=== PATIENT | female | born 1980 | race Two or more races ===

== ENCOUNTER 2019-10-26 15:19 | Inpatient (IN) | payer BC, OTHER ==
[2019-10-26] MEDS ORDERED: Acetaminophen 325 MG Tab PO PRN (17:26)
[2019-10-26] MEDS: Insulin Lispro 100 Units/ML 3 ML Vial SUBCUT SCH ×2 (18:09→22:35)
[2019-10-26] MEDS ORDERED: Magnesium Sulfate/Water 4 GM in Premix Bag 1 BAG IV ONE (18:27)
--- NOTE | 2019-10-26 18:28 | PCM.HP.2 ---
H&P History of Present Illness - General Date of Service: 10/26/19 Admit Problem/Dx: Admission Diagnosis/Problem Admission Diagnosis/Problem Hypoxia - History of Present Illness Initial Comments - Free Text/Narative: 39-year-old female with history of asthma and diabetes who is known positive for COVID-19 presents to the COVID clinic with worsening shortness of breath, cough, and fatigue. Patient initially was diagnosed on October 14 after developing symptoms. She was exposed by a work associate that she commuted with to work. Patient states that over the last several days her cough is worsened, she has had subjective fever and chills with sweats. She complains of a scratchy throat , headache, fatigue, diarrhea 3 times a day, and hoarseness. She states she has had one episode of mild hematemesis. She denies any wheezing. Her is also COVID-19 positive. Patient was a direct admission to the ICU after she was found to have O2 saturations on room air between 91 and 93%. Patient was also tachypneic with respiratory rate in the low 20s. - Related Data Allergies/Adverse Reactions: Allergies Allergy/AdvReac Type Severity Reaction Status Date / Time celecoxib [From Celebrex] Allergy Severe Anaphylactic Verified 10/26/19 16:43 Shock shellfish derived Allergy Intermediate Rash Verified 10/26/19 17:01 chicken derived Allergy Mild Cannot Verified 10/26/19 17:01 Remember grass pollen Allergy Mild Cannot Verified 10/26/19 17:01 Remember tramadol Allergy Mild Cannot Verified 10/26/19 17:01 Remember Home Medications: Home Meds Benzonatate 100 mg PO TID PRN 10/26/19 [History] Budesonide/Formoterol [Symbicort 160-4.5 MCG] 1 puff INH DAILY 10/26/19 [History ] Cholecalciferol (Vitamin D3) [Vitamin D3] 2,000 unit PO DAILY 10/26/19 [History] Dapagliflozin Propanediol [Farxiga] 10 mg PO DAILY 10/26/19 [History] Meclizine HCl 25 mg PO TID PRN 10/26/19 [History] Montelukast Sodium 10 mg PO DAILY 10/26/19 [History] Naproxen Sodium [Flanax] 220 mg PO BID PRN 10/26/19 [History] No122/Iron/Folic Acid [ Multi Tablet] 1 each PO DAILY 10/26/19 [History] Turmeric/Turmeric Root Extract [Turmeric 500 mg Capsule] 250 mg PO DAILY [History] Vitamin B Complex [B Complex] 1 each PO DAILY 10/26/19 [History] atorvaSTATin Calcium [Atorvastatin Calcium] 10 mg PO DAILY 10/26/19 [History] lisinopriL [Lisinopril] 5 mg PO DAILY 10/26/19 [History] metFORMIN HCl [Metformin HCl] 500 mg PO QID 10/26/19 [History] Past Medical History Respiratory History: Reports: None Endocrine/Metabolic History: Reports: Diabetes, Type II - Infectious Disease History Infectious Disease History: Reports: Novel Coronavirus Social & Family History - Tobacco Use Smoking Status *Q: Never Smoker Second Hand Smoke Exposure: No - Caffeine Use Caffeine Use: Reports: None - Recreational Drug Use Recreational Drug Use: No H&P Review of Systems - Review of Systems: Review Of Systems: Comprehensive ROS is negative, except as noted in HPI. Exam - Exam Exam: See Below - Vital Signs Vital Signs: Last Vital Signs Temp 96.9 F 10/26/19 17:54 Pulse Resp 18 10/26/19 17:54 BP 118/77 10/26/19 17:54 Pulse Ox 95 10/26/19 17:54 Weight: 242 lb 3.2 oz - Exam Quality Assessment: Supplemental Oxygen General: Alert, Oriented, 4 HEENT: Conjunctiva Clear, Hearing Intact, Mucosa Moist & [place] Neck: Supple, Trachea Midline, 2 Lungs: Decreased Breath Sounds. No: Normal Respiratory Effort (Mildly increased respiratory effort with respiratory rate between 18 and 24. No use of accessory muscles), Wheezing Cardiovascular: Regular Rate, Regular Rhythm GI/Abdominal Exam: Normal Bowel Sounds, Soft, Non-Tender, No Organomegaly, No Distention, No Abnormal Bruit, No Mass, Pelvis Stable, Other (Obese) Extremities: Normal Inspection, Normal Range of Motion, Non-Tender, No Pedal Edema, Normal Capillary Refill Peripheral Pulses: 2+: Posterior Tibial (L), Posterior Tibial (R), Dorsalis Pedis (L), Dorsalis Pedis (R) Skin: Warm, Dry, Intact Neurological: Cranial Nerves Intact Neuro Extensive - Mental Status: Alert, Oriented x3, Normal Mood/Affect, Normal Cognition, Memory Intact Psychiatric: Alert, Normal Affect, Normal Mood, Anxious (Mildly) - Patient Data Lab Results Last 24 hrs: Laboratory Results - last 24 hr 10/26/19 10/26/19 10/26/19 Range/Units 15:25 15:25 15:25 WBC 6.85 (3.98-10.04) K/mm3 RBC 5.84 H (3.98-5.22) M/mm3 Hgb 14.9 (11.2-15.7) gm/dl Hct 45.4 H (34.1-44.9) % MCV 77.7 L (79.4-94.8) fl MCH 25.5 L (25.6-32.2) pg MCHC 32.8 (32.2-35.5) g/dl RDW Std Deviation 39.3 (36.4-46.3) fL Plt Count 326 (182-369) K/mm3 MPV 9.6 (9.4-12.3) fl Neut % (Auto) 61.3 (34.0-71.1) % Lymph % (Auto) 27.4 (19.3-51.7) % Citrus % (Auto) 6.7 (4.7-12.5) % Eos % (Auto) 3.9 (0.7-5.8) Baso % (Auto) 0.3 (0.1-1.2) % Neut # (Auto) 4.19 (1.56-6.13) K/mm3 Lymph # (Auto) 1.88 (1.18-3.74) K/mm3 Citrus # (Auto) 0.46 H (0.24-0.36) K/mm3 Eos # (Auto) 0.27 (0.04-0.36) K/mm3 Baso # (Auto) 0.02 (0.01-0.08) K/mm3 Manual Slide Review Abnormal smear PT 9.8 (9.7-12.0) SECONDS INR 0.93 APTT 25 (22-31) SECONDS Puncture Site ABG pH (7.35-7.45) ABG pCO2 (35.0-45.0) mmHg ABG pO2 (80.0-100.0) mmHg ABG HCO3 (22.0-26.0) meq/L ABG O2 Saturation (96.0-97.0) % ABG Base Excess (-2-2.0) Amos Test A-a Gradient mmHg O2 Delivery Device Oxygen Flow Rate FiO2 (21.00-100.00) % Sodium 139 (136-145) mEq/L Potassium 3.4 L (3.5-5.1) mEq/L Chloride 102 (98-107) mEq/L Carbon Dioxide 29 (21-32) mEq/L Anion Gap 11.4 (5-15) BUN 9 (7-18) mg/dL Creatinine 0.7 (0.55-1.02) mg/dL Est Cr Clr Drug Dosing 86.18 mL/min Estimated GFR (MDRD) > 60 (>60) mL/min BUN/Creatinine Ratio 12.9 L (14-18) Glucose 144 H (74-106) mg/dL POC Glucose (70-105) mg/dL Calcium 8.7 (8.5-10.1) mg/dL Magnesium 1.6 L (1.8-2.4) mg/dl Ferritin (8-252) ng/ml Total Bilirubin 0.4 (0.2-1.0) mg/dL AST 17 (15-37) U/L ALT 24 (14-59) U/L Alkaline Phosphatase 81 (46-116) U/L Lactate Dehydrogenase 316 H (81-234) U/L Creatine Kinase 58 (26-192) U/L Troponin I < 0.017 (0.00-0.056) ng/mL C-Reactive Protein 3.6 H* (<1.0) mg/dL NT-Pro-B Natriuret Pep (0-125) pg/mL Total Protein 7.8 (6.4-8.2) g/dl Albumin 2.9 L (3.4-5.0) g/dl Globulin 4.9 gm/dL Albumin/Globulin Ratio 0.6 L (1-2) 10/26/19 10/26/19 10/26/19 Range/Units 15:25 15:25 17:45 WBC (3.98-10.04) K/mm3 RBC (3.98-5.22) M/mm3 Hgb (11.2-15.7) gm/dl Hct (34.1-44.9) % MCV (79.4-94.8) fl MCH (25.6-32.2) pg MCHC (32.2-35.5) g/dl RDW Std Deviation (36.4-46.3) fL Plt Count (182-369) K/mm3 MPV (9.4-12.3) fl Neut % (Auto) (34.0-71.1) % Lymph % (Auto) (19.3-51.7) % Citrus % (Auto) (4.7-12.5) % Eos % (Auto) (0.7-5.8) Baso % (Auto) (0.1-1.2) % Neut # (Auto) (1.56-6.13) K/mm3 Lymph # (Auto) (1.18-3.74) K/mm3 Citrus # (Auto) (0.24-0.36) K/mm3 Eos # (Auto) (0.04-0.36) K/mm3 Baso # (Auto) (0.01-0.08) K/mm3 Manual Slide Review PT (9.7-12.0) SECONDS INR APTT (22-31) SECONDS Puncture Site ABG pH (7.35-7.45) ABG pCO2 (35.0-45.0) mmHg ABG pO2 (80.0-100.0) mmHg ABG HCO3 (22.0-26.0) meq/L ABG O2 Saturation (96.0-97.0) % ABG Base Excess (-2-2.0) Amos Test A-a Gradient mmHg O2 Delivery Device Oxygen Flow Rate FiO2 (21.00-100.00) % Sodium (136-145) mEq/L Potassium (3.5-5.1) mEq/L Chloride (98-107) mEq/L Carbon Dioxide (21-32) mEq/L Anion Gap (5-15) BUN (7-18) mg/dL Creatinine (0.55-1.02) mg/dL Est Cr Clr Drug Dosing mL/min Estimated GFR (MDRD) (>60) mL/min BUN/Creatinine Ratio (14-18) Glucose (74-106) mg/dL POC Glucose 114 H (70-105) mg/dL Calcium (8.5-10.1) mg/dL Magnesium (1.8-2.4) mg/dl Ferritin 314 H (8-252) ng/ml Total Bilirubin (0.2-1.0) mg/dL AST (15-37) U/L ALT (14-59) U/L Alkaline Phosphatase (46-116) U/L Lactate Dehydrogenase (81-234) U/L Creatine Kinase (26-192) U/L Troponin I (0.00-0.056) ng/mL C-Reactive Protein (<1.0) mg/dL NT-Pro-B Natriuret Pep 95 (0-125) pg/mL Total Protein (6.4-8.2) g/dl Albumin (3.4-5.0) g/dl Globulin gm/dL Albumin/Globulin Ratio (1-2) 10/26/19 Range/Units 18:02 WBC (3.98-10.04) K/mm3 RBC (3.98-5.22) M/mm3 Hgb (11.2-15.7) gm/dl Hct (34.1-44.9) % MCV (79.4-94.8) fl MCH (25.6-32.2) pg MCHC (32.2-35.5) g/dl RDW Std Deviation (36.4-46.3) fL Plt Count (182-369) K/mm3 MPV (9.4-12.3) fl Neut % (Auto) (34.0-71.1) % Lymph % (Auto) (19.3-51.7) % Citrus % (Auto) (4.7-12.5) % Eos % (Auto) (0.7-5.8) Baso % (Auto) (0.1-1.2) % Neut # (Auto) (1.56-6.13) K/mm3 Lymph # (Auto) (1.18-3.74) K/mm3 Citrus # (Auto) (0.24-0.36) K/mm3 Eos # (Auto) (0.04-0.36) K/mm3 Baso # (Auto) (0.01-0.08) K/mm3 Manual Slide Review PT (9.7-12.0) SECONDS INR APTT (22-31) SECONDS Puncture Site Lt radial ABG pH 7.37 (7.35-7.45) ABG pCO2 43.2 (35.0-45.0) mmHg ABG pO2 79.0 L (80.0-100.0) mmHg ABG HCO3 24.6 (22.0-26.0) meq/L ABG O2 Saturation 94.9 L (96.0-97.0) % ABG Base Excess -0.3 (-2-2.0) Amos Test Positive A-a Gradient 38 mmHg O2 Delivery Device Nasal cannula Oxygen Flow Rate 1.0 FiO2 24.00 (21.00-100.00) % Sodium (136-145) mEq/L Potassium (3.5-5.1) mEq/L Chloride (98-107) mEq/L Carbon Dioxide (21-32) mEq/L Anion Gap (5-15) BUN (7-18) mg/dL Creatinine (0.55-1.02) mg/dL Est Cr Clr Drug Dosing mL/min Estimated GFR (MDRD) (>60) mL/min BUN/Creatinine Ratio (14-18) Glucose (74-106) mg/dL POC Glucose (70-105) mg/dL Calcium (8.5-10.1) mg/dL Magnesium (1.8-2.4) mg/dl Ferritin (8-252) ng/ml Total Bilirubin (0.2-1.0) mg/dL AST (15-37) U/L ALT (14-59) U/L Alkaline Phosphatase (46-116) U/L Lactate Dehydrogenase (81-234) U/L Creatine Kinase (26-192) U/L Troponin I (0.00-0.056) ng/mL C-Reactive Protein (<1.0) mg/dL NT-Pro-B Natriuret Pep (0-125) pg/mL Total Protein (6.4-8.2) g/dl Albumin (3.4-5.0) g/dl Globulin gm/dL Albumin/Globulin Ratio (1-2) Result Diagrams: 10/26/19 15:25 10/26/19 15:25 EKG INTERPRETATION EKG Date: 10/26/19 Rhythm: NSR Rate (Beats/Min): 74 [place]: Normal P-Wave: Present QRS: Normal ST-T: Normal QT: Normal Sepsis Event Note - Evaluation Sepsis Screening Result: No Definite Risk - Focused Exam Vital Signs: Vital Signs Temp Resp BP Pulse Ox Pulse Ox 10/26/19 17:54 96.9 F 18 118/77 95 10/26/19 17:26 94 L Date Exam was Performed: 10/26/19 Time Exam was Performed: 18:52 Problem List Initiated/Reviewed/Updated: Yes Orders Last 24hrs: Active Orders 24 hr Category Date Time Status Patient Status [ADT] Routine ADT 10/26/19 17:26 Active Blood Glucose Check, Bedside [RC] QIDACANDBED Care 10/26/19 16:53 Active EKG 12 Lead [EKG Documentation Completion] [RC] STAT Care 10/26/19 17:31 Active Intake and Output Strict [RC] ASDIRECTED Care 10/26/19 18:20 Active Oxygen Therapy [RC] PRN Care 10/26/19 17:26 Active Up ad Jolly [RC] ASDIRECTED Care 10/26/19 17:26 Active VTE/DVT Education [RC] BID Care 10/26/19 17:26 Active Vital Signs [RC] Q4HR Care 10/26/19 17:26 Active [place] [employer] Diet [DIET] Diet 10/26/19 Dinner Active CXR [Chest 1V Frontal] [CR] Routine Exams 10/27/19 05:11 Ordered D Dimer [D-DIMER QUANTITATIVE] [COAG] Routine Lab 10/26/19 15:25 Received PROCALCITONIN [REF] Stat Lab 10/26/19 15:25 Received SEDIMENTATION RATE AUTO [HEME] Stat Lab 10/26/19 15:25 Received Acetaminophen [Tylenol] Med 10/26/19 17:26 Active 650 mg PO Q4H PRN Enoxaparin [Lovenox] Med 10/26/19 21:00 Pending 40 mg SUBCUT Q12H Insulin Lispro [HumaLOG] Med 10/26/19 17:00 Active See Protocol SUBCUT QIDACANDBED Magnesium Sulfate/Water [Magnesium Sulfate in Water Med 10/26/19 18:27 Ordered Premix] 4 gm Premix Bag 1 bag IV ONETIME Potassium Chloride [Klor-Con M20] Med 10/26/19 18:14 Once 40 meq PO ONETIME ONE Isolation [COMM] Routine Oth 10/26/19 16:35 Ordered Resuscitation Status Routine Resus Stat 10/26/19 16:53 Ordered Medication Orders Acetaminophen (Tylenol) 650 mg PO Q4H PRN PRN Reason: Pain (Mild 1-3)/fever Enoxaparin Sodium (Lovenox) 40 mg SUBCUT Q12H [facility] Magnesium Sulfate 4 gm/ Premix 50 mls @ 12.5 mls/hr IV ONETIME ONE Stop: 10/26/19 22:26 Insulin Human Lispro (Humalog) 0 unit SUBCUT QIDACANDBED [facility]; Protocol Last Admin: 10/26/19 18:09 Dose: Not Given Potassium Chloride (Klor-Con M20) 40 meq PO ONETIME ONE Stop: 10/26/19 18:15 Assessment/Plan Comment:: Severe COVID-19 Hypoxemia Asthma * Patient is hypoxemic with oxygen saturations less than 94%. * Increased respiratory rate, but less than 30 * Had a positive COVID-19 PCR on October 14. Exposure secondary to work associate while commuting to work. * Symptoms worsening over the last week. * History of asthma on Symbicort and montelukast * Pertinent normal labs: WBC 6.5 with normal absolute lymphocytes, normal INR and APTT, creatinine kinase 58, troponin I <0.017, * Pertinent positive labs: increased ferritin 314, increased LDH 316, mildly increased d-dimer 0.59, CRP 1.6, Plan * Admit to ICU for close monitoring * FiO2 via nasal cannula to keep oxygen saturation above 90% * Daily CBC, CMP, magnesium, CRP, ferritin, LDH, creatinine kinase, d-dimer, * Every other day troponin, PT and PTT * Continue Symbicort and montelukast * Albuterol 2 puffs every 2 hours as needed * Avoid systemic steroids if possible * Pharmacy is working to obtain emergency use of remdesivir from [facility] [facility] * Unknown hemoglobin A1c * Home meds include Farxiga and metformin Plan * Fingerstick blood sugars 4 times daily * Cover with sliding scale initially and consider long-acting insulin if needed * Continue lisinopril 5 mg daily and atorvastatin equivalent * Get hemoglobin A1c Morbid obesity * BMI 44.3 * This increases her risk for complications secondary to COVID and thromboembolic disease VTE prophylaxis will be with Lovenox 40 mg twice daily because of the increased risk of thromboembolic disease secondary to both COVID-19 and her obesity. CODE STATUS: Full code Droplet and contact isolation Disposition: Admit to ICU for close monitoring. - Mortality Measure Prognosis:: Good
[2019-10-26] MEDS ORDERED: Benzonatate 100 MG Cap PO PRN (18:34)
[2019-10-26] MEDS ORDERED: Albuterol 0.5% 2.5 MG/0.5 ML Neb Soln NEB PRN (18:53)
[2019-10-26] MEDS: Enoxaparin 40 MG/0.4 ML Syringe SUBCUT SCH (20:32)
[2019-10-26] MEDS: Potassium Chloride 20 MEQ Tab.ER PO ONE ×2 (20:33→22:36)
[2019-10-26] MEDS ORDERED: Formoterol/Mometasone 200-5 MCG 8.8 GM Inhaler IH SCH (21:00)
[2019-10-27] MEDS: Insulin Lispro 100 Units/ML 3 ML Vial SUBCUT SCH ×3 (06:49→16:25)
[2019-10-27 07:20] LABS: HEMOGLOBIN A1C 8.1 % (4.50-6.20)
[2019-10-27] MEDS: Enoxaparin 40 MG/0.4 ML Syringe SUBCUT SCH (08:03)
--- NOTE | 2019-10-27 08:31 | CR ---
Chest: Portable view of the chest was obtained. Comparison: No prior chest imaging is available. Findings: Heart size and mediastinum are normal. Patchy areas of increased density are noted throughout both sides of the chest presumably representing pneumonia. No discrete pleural effusions noted on the study. Bony structures are grossly intact. Impression: 1. Diffuse increased density on both sides of the chest presumably representing pneumonia. Etiology can be viral as well as bacterial. Diagnostic code #3 This report was dictated in MDT
[2019-10-27] MEDS ORDERED: Lisinopril 5 MG Tab PO SCH (09:00)
[2019-10-27] MEDS ORDERED: Montelukast 10 MG Tab PO SCH (09:00)
[2019-10-27] MEDS ORDERED: Formoterol/Mometasone 200-5 MCG 8.8 GM Inhaler IH SCH (09:00)
--- NOTE | 2019-10-27 09:47 | PCM.PN ---
- General Info Date of Service: 10/27/19 Admission Dx/Problem (Free Text): Admission Diagnosis/Problem Admission Diagnosis/Problem Hypoxia Subjective Update: Patient states that she is feeling much better. She is having less shortness of breath but still has some mucus production when she coughs. She is tolerating her diet and slept well. Functional Status: Reports: Pain Controlled - Review of Systems General: Reports: No Symptoms HEENT: Reports: No Symptoms Pulmonary: Reports: Shortness of Breath, Cough Cardiovascular: Reports: No Symptoms Gastrointestinal: Reports: No Symptoms Musculoskeletal: Reports: No Symptoms Skin: Reports: No Symptoms Neurological: Reports: No Symptoms Psychiatric: Reports: No Symptoms - Patient Data Vitals - Most Recent: Last Vital Signs Temp 97.1 F 10/27/19 08:00 Pulse Resp 19 10/27/19 08:00 BP 112/66 10/27/19 08:03 Pulse Ox 96 10/27/19 08:58 Weight - Most Recent: 243 lb I&O - Last 24 Hours: Intake & Output 10/26/19 10/27/19 10/27/19 22:59 06:59 14:59 Intake Total 1050 Output Total 400 770 Balance -400 280 Lab Results Last 24 Hours: Laboratory Results - last 24 hr 10/26/19 10/26/19 10/26/19 Range/Units 15:25 15:25 15:25 WBC 6.85 (3.98-10.04) K/mm3 RBC 5.84 H (3.98-5.22) M/mm3 Hgb 14.9 (11.2-15.7) gm/dl Hct 45.4 H (34.1-44.9) % MCV 77.7 L (79.4-94.8) fl MCH 25.5 L (25.6-32.2) pg MCHC 32.8 (32.2-35.5) g/dl RDW Std Deviation 39.3 (36.4-46.3) fL Plt Count 326 (182-369) K/mm3 MPV 9.6 (9.4-12.3) fl Neut % (Auto) 61.3 (34.0-71.1) % Lymph % (Auto) 27.4 (19.3-51.7) % Vance % (Auto) 6.7 (4.7-12.5) % Eos % (Auto) 3.9 (0.7-5.8) Baso % (Auto) 0.3 (0.1-1.2) % Neut # (Auto) 4.19 (1.56-6.13) K/mm3 Lymph # (Auto) 1.88 (1.18-3.74) K/mm3 Vance # (Auto) 0.46 H (0.24-0.36) K/mm3 Eos # (Auto) 0.27 (0.04-0.36) K/mm3 Baso # (Auto) 0.02 (0.01-0.08) K/mm3 Manual Slide Review Abnormal smear ESR 58 H (0-20) mm/hr PT 9.8 (9.7-12.0) SECONDS INR 0.93 APTT 25 (22-31) SECONDS D-Dimer, Quantitative (0.19-0.50) mg/L Puncture Site ABG pH (7.35-7.45) ABG pCO2 (35.0-45.0) mmHg ABG pO2 (80.0-100.0) mmHg ABG HCO3 (22.0-26.0) meq/L ABG O2 Saturation (96.0-97.0) % ABG Base Excess (-2-2.0) Amos Test A-a Gradient mmHg O2 Delivery Device Oxygen Flow Rate FiO2 (21.00-100.00) % Sodium (136-145) mEq/L Potassium (3.5-5.1) mEq/L Chloride (98-107) mEq/L Carbon Dioxide (21-32) mEq/L Anion Gap (5-15) BUN (7-18) mg/dL Creatinine (0.55-1.02) mg/dL Est Cr Clr Drug Dosing mL/min Estimated GFR (MDRD) (>60) mL/min BUN/Creatinine Ratio (14-18) Glucose (74-106) mg/dL POC Glucose (70-105) mg/dL Hemoglobin A1c (4.50-6.20) % Calcium (8.5-10.1) mg/dL Magnesium (1.8-2.4) mg/dl Ferritin (8-252) ng/ml Total Bilirubin (0.2-1.0) mg/dL AST (15-37) U/L ALT (14-59) U/L Alkaline Phosphatase (46-116) U/L Lactate Dehydrogenase (81-234) U/L Creatine Kinase (26-192) U/L Troponin I (0.00-0.056) ng/mL C-Reactive Protein (<1.0) mg/dL NT-Pro-B Natriuret Pep (0-125) pg/mL Total Protein (6.4-8.2) g/dl Albumin (3.4-5.0) g/dl Globulin gm/dL Albumin/Globulin Ratio (1-2) 10/26/19 10/26/19 10/26/19 Range/Units 15:25 15:25 15:25 WBC (3.98-10.04) K/mm3 RBC (3.98-5.22) M/mm3 Hgb (11.2-15.7) gm/dl Hct (34.1-44.9) % MCV (79.4-94.8) fl MCH (25.6-32.2) pg MCHC (32.2-35.5) g/dl RDW Std Deviation (36.4-46.3) fL Plt Count (182-369) K/mm3 MPV (9.4-12.3) fl Neut % (Auto) (34.0-71.1) % Lymph % (Auto) (19.3-51.7) % Vance % (Auto) (4.7-12.5) % Eos % (Auto) (0.7-5.8) Baso % (Auto) (0.1-1.2) % Neut # (Auto) (1.56-6.13) K/mm3 Lymph # (Auto) (1.18-3.74) K/mm3 Vance # (Auto) (0.24-0.36) K/mm3 Eos # (Auto) (0.04-0.36) K/mm3 Baso # (Auto) (0.01-0.08) K/mm3 Manual Slide Review ESR (0-20) mm/hr PT (9.7-12.0) SECONDS INR APTT (22-31) SECONDS D-Dimer, Quantitative (0.19-0.50) mg/L Puncture Site ABG pH (7.35-7.45) ABG pCO2 (35.0-45.0) mmHg ABG pO2 (80.0-100.0) mmHg ABG HCO3 (22.0-26.0) meq/L ABG O2 Saturation (96.0-97.0) % ABG Base Excess (-2-2.0) Amos Test A-a Gradient mmHg O2 Delivery Device Oxygen Flow Rate FiO2 (21.00-100.00) % Sodium 139 (136-145) mEq/L Potassium 3.4 L (3.5-5.1) mEq/L Chloride 102 (98-107) mEq/L Carbon Dioxide 29 (21-32) mEq/L Anion Gap 11.4 (5-15) BUN 9 (7-18) mg/dL Creatinine 0.7 (0.55-1.02) mg/dL Est Cr Clr Drug Dosing 86.18 mL/min Estimated GFR (MDRD) > 60 (>60) mL/min BUN/Creatinine Ratio 12.9 L (14-18) Glucose 144 H (74-106) mg/dL POC Glucose (70-105) mg/dL Hemoglobin A1c (4.50-6.20) % Calcium 8.7 (8.5-10.1) mg/dL Magnesium 1.6 L (1.8-2.4) mg/dl Ferritin 314 H (8-252) ng/ml Total Bilirubin 0.4 (0.2-1.0) mg/dL AST 17 (15-37) U/L ALT 24 (14-59) U/L Alkaline Phosphatase 81 (46-116) U/L Lactate Dehydrogenase 316 H (81-234) U/L Creatine Kinase 58 (26-192) U/L Troponin I < 0.017 (0.00-0.056) ng/mL C-Reactive Protein 3.6 H* (<1.0) mg/dL NT-Pro-B Natriuret Pep 95 (0-125) pg/mL Total Protein 7.8 (6.4-8.2) g/dl Albumin 2.9 L (3.4-5.0) g/dl Globulin 4.9 gm/dL Albumin/Globulin Ratio 0.6 L (1-2) 10/26/19 10/26/19 10/26/19 Range/Units 15:25 17:45 18:02 WBC (3.98-10.04) K/mm3 RBC (3.98-5.22) M/mm3 Hgb (11.2-15.7) gm/dl Hct (34.1-44.9) % MCV (79.4-94.8) fl MCH (25.6-32.2) pg MCHC (32.2-35.5) g/dl RDW Std Deviation (36.4-46.3) fL Plt Count (182-369) K/mm3 MPV (9.4-12.3) fl Neut % (Auto) (34.0-71.1) % Lymph % (Auto) (19.3-51.7) % Vance % (Auto) (4.7-12.5) % Eos % (Auto) (0.7-5.8) Baso % (Auto) (0.1-1.2) % Neut # (Auto) (1.56-6.13) K/mm3 Lymph # (Auto) (1.18-3.74) K/mm3 Vance # (Auto) (0.24-0.36) K/mm3 Eos # (Auto) (0.04-0.36) K/mm3 Baso # (Auto) (0.01-0.08) K/mm3 Manual Slide Review ESR (0-20) mm/hr PT (9.7-12.0) SECONDS INR APTT (22-31) SECONDS D-Dimer, Quantitative 0.59 H (0.19-0.50) mg/L Puncture Site Lt radial ABG pH 7.37 (7.35-7.45) ABG pCO2 43.2 (35.0-45.0) mmHg ABG pO2 79.0 L (80.0-100.0) mmHg ABG HCO3 24.6 (22.0-26.0) meq/L ABG O2 Saturation 94.9 L (96.0-97.0) % ABG Base Excess -0.3 (-2-2.0) Amos Test Positive A-a Gradient 38 mmHg O2 Delivery Device Nasal cannula Oxygen Flow Rate 1.0 FiO2 24.00 (21.00-100.00) % Sodium (136-145) mEq/L Potassium (3.5-5.1) mEq/L Chloride (98-107) mEq/L Carbon Dioxide (21-32) mEq/L Anion Gap (5-15) BUN (7-18) mg/dL Creatinine (0.55-1.02) mg/dL Est Cr Clr Drug Dosing mL/min Estimated GFR (MDRD) (>60) mL/min BUN/Creatinine Ratio (14-18) Glucose (74-106) mg/dL POC Glucose 114 H (70-105) mg/dL Hemoglobin A1c (4.50-6.20) % Calcium (8.5-10.1) mg/dL Magnesium (1.8-2.4) mg/dl Ferritin (8-252) ng/ml Total Bilirubin (0.2-1.0) mg/dL AST (15-37) U/L ALT (14-59) U/L Alkaline Phosphatase (46-116) U/L Lactate Dehydrogenase (81-234) U/L Creatine Kinase (26-192) U/L Troponin I (0.00-0.056) ng/mL C-Reactive Protein (<1.0) mg/dL NT-Pro-B Natriuret Pep (0-125) pg/mL Total Protein (6.4-8.2) g/dl Albumin (3.4-5.0) g/dl Globulin gm/dL Albumin/Globulin Ratio (1-2) 10/26/19 10/27/19 10/27/19 Range/Units 20:26 05:36 05:40 WBC 6.06 (3.98-10.04) K/mm3 RBC 5.51 H (3.98-5.22) M/mm3 Hgb 14.0 (11.2-15.7) gm/dl Hct 43.5 (34.1-44.9) % MCV 78.9 L (79.4-94.8) fl MCH 25.4 L (25.6-32.2) pg MCHC 32.2 (32.2-35.5) g/dl RDW Std Deviation 40.0 (36.4-46.3) fL Plt Count 303 (182-369) K/mm3 MPV 9.2 L (9.4-12.3) fl Neut % (Auto) 51.4 (34.0-71.1) % Lymph % (Auto) 35.0 (19.3-51.7) % Vance % (Auto) 8.3 (4.7-12.5) % Eos % (Auto) 4.3 (0.7-5.8) Baso % (Auto) 0.7 (0.1-1.2) % Neut # (Auto) 3.12 (1.56-6.13) K/mm3 Lymph # (Auto) 2.12 (1.18-3.74) K/mm3 Vance # (Auto) 0.50 H (0.24-0.36) K/mm3 Eos # (Auto) 0.26 (0.04-0.36) K/mm3 Baso # (Auto) 0.04 (0.01-0.08) K/mm3 Manual Slide Review Normal smear ESR (0-20) mm/hr PT (9.7-12.0) SECONDS INR APTT (22-31) SECONDS D-Dimer, Quantitative (0.19-0.50) mg/L Puncture Site ABG pH (7.35-7.45) ABG pCO2 (35.0-45.0) mmHg ABG pO2 (80.0-100.0) mmHg ABG HCO3 (22.0-26.0) meq/L ABG O2 Saturation (96.0-97.0) % ABG Base Excess (-2-2.0) Amos Test A-a Gradient mmHg O2 Delivery Device Oxygen Flow Rate FiO2 (21.00-100.00) % Sodium (136-145) mEq/L Potassium (3.5-5.1) mEq/L Chloride (98-107) mEq/L Carbon Dioxide (21-32) mEq/L Anion Gap (5-15) BUN (7-18) mg/dL Creatinine (0.55-1.02) mg/dL Est Cr Clr Drug Dosing mL/min Estimated GFR (MDRD) (>60) mL/min BUN/Creatinine Ratio (14-18) Glucose (74-106) mg/dL POC Glucose 129 H 149 H (70-105) mg/dL Hemoglobin A1c (4.50-6.20) % Calcium (8.5-10.1) mg/dL Magnesium (1.8-2.4) mg/dl Ferritin (8-252) ng/ml Total Bilirubin (0.2-1.0) mg/dL AST (15-37) U/L ALT (14-59) U/L Alkaline Phosphatase (46-116) U/L Lactate Dehydrogenase (81-234) U/L Creatine Kinase (26-192) U/L Troponin I (0.00-0.056) ng/mL C-Reactive Protein (<1.0) mg/dL NT-Pro-B Natriuret Pep (0-125) pg/mL Total Protein (6.4-8.2) g/dl Albumin (3.4-5.0) g/dl Globulin gm/dL Albumin/Globulin Ratio (1-2) 10/27/19 10/27/19 10/27/19 Range/Units 05:40 05:40 05:40 WBC (3.98-10.04) K/mm3 RBC (3.98-5.22) M/mm3 Hgb (11.2-15.7) gm/dl Hct (34.1-44.9) % MCV (79.4-94.8) fl MCH (25.6-32.2) pg MCHC (32.2-35.5) g/dl RDW Std Deviation (36.4-46.3) fL Plt Count (182-369) K/mm3 MPV (9.4-12.3) fl Neut % (Auto) (34.0-71.1) % Lymph % (Auto) (19.3-51.7) % Vance % (Auto) (4.7-12.5) % Eos % (Auto) (0.7-5.8) Baso % (Auto) (0.1-1.2) % Neut # (Auto) (1.56-6.13) K/mm3 Lymph # (Auto) (1.18-3.74) K/mm3 Vance # (Auto) (0.24-0.36) K/mm3 Eos # (Auto) (0.04-0.36) K/mm3 Baso # (Auto) (0.01-0.08) K/mm3 Manual Slide Review ESR (0-20) mm/hr PT (9.7-12.0) SECONDS INR APTT (22-31) SECONDS D-Dimer, Quantitative 0.57 H (0.19-0.50) mg/L Puncture Site ABG pH (7.35-7.45) ABG pCO2 (35.0-45.0) mmHg ABG pO2 (80.0-100.0) mmHg ABG HCO3 (22.0-26.0) meq/L ABG O2 Saturation (96.0-97.0) % ABG Base Excess (-2-2.0) Amos Test A-a Gradient mmHg O2 Delivery Device Oxygen Flow Rate FiO2 (21.00-100.00) % Sodium 140 (136-145) mEq/L Potassium 3.7 (3.5-5.1) mEq/L Chloride 103 (98-107) mEq/L Carbon Dioxide 29 (21-32) mEq/L Anion Gap 11.7 (5-15) BUN 10 (7-18) mg/dL Creatinine 0.5 L (0.55-1.02) mg/dL Est Cr Clr Drug Dosing 120.66 mL/min Estimated GFR (MDRD) > 60 (>60) mL/min BUN/Creatinine Ratio 20.0 H (14-18) Glucose 180 H (74-106) mg/dL POC Glucose (70-105) mg/dL Hemoglobin A1c (4.50-6.20) % Calcium 8.0 L (8.5-10.1) mg/dL Magnesium 2.3 (1.8-2.4) mg/dl Ferritin 265 H (8-252) ng/ml Total Bilirubin 0.5 (0.2-1.0) mg/dL AST 16 (15-37) U/L ALT 21 (14-59) U/L Alkaline Phosphatase 64 (46-116) U/L Lactate Dehydrogenase 224 (81-234) U/L Creatine Kinase 42 (26-192) U/L Troponin I (0.00-0.056) ng/mL C-Reactive Protein 3.0 H* (<1.0) mg/dL NT-Pro-B Natriuret Pep (0-125) pg/mL Total Protein 7.3 (6.4-8.2) g/dl Albumin 2.8 L (3.4-5.0) g/dl Globulin 4.5 gm/dL Albumin/Globulin Ratio 0.6 L (1-2) 05/13/20 Range/Units 05:40 WBC (3.98-10.04) K/mm3 RBC (3.98-5.22) M/mm3 Hgb (11.2-15.7) gm/dl Hct (34.1-44.9) % MCV (79.4-94.8) fl MCH (25.6-32.2) pg MCHC (32.2-35.5) g/dl RDW Std Deviation (36.4-46.3) fL Plt Count (182-369) K/mm3 MPV (9.4-12.3) fl Neut % (Auto) (34.0-71.1) % Lymph % (Auto) (19.3-51.7) % Vance % (Auto) (4.7-12.5) % Eos % (Auto) (0.7-5.8) Baso % (Auto) (0.1-1.2) % Neut # (Auto) (1.56-6.13) K/mm3 Lymph # (Auto) (1.18-3.74) K/mm3 Vance # (Auto) (0.24-0.36) K/mm3 Eos # (Auto) (0.04-0.36) K/mm3 Baso # (Auto) (0.01-0.08) K/mm3 Manual Slide Review ESR (0-20) mm/hr PT (9.7-12.0) SECONDS INR APTT (22-31) SECONDS D-Dimer, Quantitative (0.19-0.50) mg/L Puncture Site ABG pH (7.35-7.45) ABG pCO2 (35.0-45.0) mmHg ABG pO2 (80.0-100.0) mmHg ABG HCO3 (22.0-26.0) meq/L ABG O2 Saturation (96.0-97.0) % ABG Base Excess (-2-2.0) Amos Test A-a Gradient mmHg O2 Delivery Device Oxygen Flow Rate FiO2 (21.00-100.00) % Sodium (136-145) mEq/L Potassium (3.5-5.1) mEq/L Chloride (98-107) mEq/L Carbon Dioxide (21-32) mEq/L Anion Gap (5-15) BUN (7-18) mg/dL Creatinine (0.55-1.02) mg/dL Est Cr Clr Drug Dosing mL/min Estimated GFR (MDRD) (>60) mL/min BUN/Creatinine Ratio (14-18) Glucose (74-106) mg/dL POC Glucose (70-105) mg/dL Hemoglobin A1c 8.10 H (4.50-6.20) % Calcium (8.5-10.1) mg/dL Magnesium (1.8-2.4) mg/dl Ferritin (8-252) ng/ml Total Bilirubin (0.2-1.0) mg/dL AST (15-37) U/L ALT (14-59) U/L Alkaline Phosphatase (46-116) U/L Lactate Dehydrogenase (81-234) U/L Creatine Kinase (26-192) U/L Troponin I (0.00-0.056) ng/mL C-Reactive Protein (<1.0) mg/dL NT-Pro-B Natriuret Pep (0-125) pg/mL Total Protein (6.4-8.2) g/dl Albumin (3.4-5.0) g/dl Globulin gm/dL Albumin/Globulin Ratio (1-2) Med Orders - Current: Current Medications Acetaminophen (Tylenol) 650 mg PO Q4H PRN PRN Reason: Pain (Mild 1-3)/fever Albuterol (Proventil) 2.5 mg NEB Q2H PRN PRN Reason: WHEEZING Benzonatate (Tessalon Perles) 100 mg PO TID PRN PRN Reason: Cough Last Admin: 10/26/19 20:34 Dose: 100 mg Enoxaparin Sodium (Lovenox) 40 mg SUBCUT Q12H [facility] Last Admin: 10/27/19 08:03 Dose: 40 mg Insulin Human Lispro (Humalog) 0 unit SUBCUT QIDACANDBED [facility]; Protocol Last Admin: 10/27/19 06:49 Dose: Not Given Lisinopril (Prinivil) 5 mg PO DAILY [facility] Last Admin: 10/27/19 08:03 Dose: 5 mg Meclizine HCl (Antivert) 25 mg PO TID PRN PRN Reason: DIZZINESS Mometasone Furoate/Formoterol Fumar (Dulera 200-5 Mcg) 0 puff IH BID [facility] Last Admin: 10/27/19 08:04 Dose: 2 puff Montelukast Sodium (Singulair) 10 mg PO DAILY [facility] Last Admin: 10/27/19 08:04 Dose: 10 mg Simvastatin (Zocor) 10 mg PO BEDTIME [facility] Discontinued Medications Magnesium Sulfate 4 gm/ Premix 50 mls @ 12.5 mls/hr IV ONETIME ONE Stop: 10/26/19 22:26 Last Admin: 10/26/19 20:32 Dose: 12.5 mls/hr Mometasone Furoate/Formoterol Fumar (Dulera 200-5 Mcg) 0 puff IH BIDRT [facility] Last Admin: 10/26/19 22:47 Dose: 2 puff Potassium Chloride (Klor-Con M20) 40 meq PO ONETIME ONE Stop: 10/26/19 22:01 Last Admin: 10/26/19 22:36 Dose: Not Given - Exam Quality Assessment: Supplemental Oxygen General: Alert, Oriented HEENT: Pupils Equal, Mucous Membr. Moist/[place] Neck: Supple Lungs: Normal Respiratory Effort, Decreased Breath Sounds Cardiovascular: Regular Rate, Regular Rhythm GI/Abdominal Exam: Normal Bowel Sounds, Soft, Non-Tender, No Organomegaly, No Distention, No Abnormal Bruit, No Mass Extremities: Normal Inspection, Normal Range of Motion, Non-Tender, No Pedal Edema, Normal Capillary Refill Skin: Warm, Dry, Intact Neurological: No New Focal Deficit Psy/Mental Status: Alert, Normal Affect, Normal Mood Sepsis Event Note - Evaluation Sepsis Screening Result: No Definite Risk - Focused Exam Vital Signs: Vital Signs Temp Resp BP BP Pulse Ox Pulse Ox Pulse Ox 10/27/19 08:58 96 10/27/19 08:57 87 L 10/27/19 08:03 112/66 10/27/19 08:00 97.1 F 19 112/66 96 10/27/19 05:21 97.7 F 18 104/66 96 10/27/19 00:00 96.9 F 19 107/62 95 10/26/19 22:48 97 Date Exam was Performed: 10/27/19 Time Exam was Performed: 15:11 - Problem List Review Problem List Initiated/Reviewed/Updated: Yes - My Orders Last 24 Hours: My Active Orders 10/26/19 15:25 PROCALCITONIN [REF] Stat 10/26/19 16:35 Isolation [COMM] Routine 10/26/19 16:53 Blood Glucose Check, Bedside [RC] QIDACANDBED Resuscitation Status Routine 10/26/19 17:00 Insulin Lispro [HumaLOG] See Protocol SUBCUT QIDACANDBED 10/26/19 17:26 Oxygen Therapy [RC] PRN Up ad Jolly [RC] ASDIRECTED VTE/DVT Education [RC] BID Vital Signs [RC] Q4HR Acetaminophen [Tylenol] 650 mg PO Q4H PRN 10/26/19 17:31 EKG 12 Lead [EKG Documentation Completion] [RC] STAT 10/26/19 18:20 Intake and Output Strict [RC] ASDIRECTED 10/26/19 18:34 Benzonatate [Tessalon Perles] 100 mg PO TID PRN 10/26/19 18:53 Albuterol [Proventil] 2.5 mg NEB Q2H PRN 10/26/19 18:58 Meclizine [Antivert] 25 mg PO TID PRN 10/26/19 21:00 Enoxaparin [Lovenox] 40 mg SUBCUT Q12H 10/26/19 Dinner [employer] Diet [DIET] 10/27/19 08:06 Patient Status [ADT] Routine 10/27/19 09:00 Mometasone/Formoterol [Dulera 200-5 MCG] 0 puff IH BID Montelukast [Singulair] 10 mg PO DAILY lisinopriL [Prinivil] 5 mg PO DAILY 10/27/19 21:00 Simvastatin [Zocor] 10 mg PO BEDTIME 10/28/19 05:11 CBC WITH AUTO DIFF [HEME] AM CMP [COMPREHENSIVE METABOLIC PN,CMP] [CHEM] AM CPK [CREATINE KINASE,CK] [CHEM] AM CRP [C-REACTIVE PROTEIN] [CHEM] AM D Dimer [D-DIMER QUANTITATIVE] [COAG] AM FERRITIN [CHEM] AM LACTATE DEHYDROGENASE,LDH [CHEM] AM MAGNESIUM [CHEM] AM 10/29/19 05:11 CBC WITH AUTO DIFF [HEME] AM CMP [COMPREHENSIVE METABOLIC PN,CMP] [CHEM] AM CPK [CREATINE KINASE,CK] [CHEM] AM CRP [C-REACTIVE PROTEIN] [CHEM] AM D Dimer [D-DIMER QUANTITATIVE] [COAG] AM FERRITIN [CHEM] AM LACTATE DEHYDROGENASE,LDH [CHEM] AM MAGNESIUM [CHEM] AM 10/30/19 05:11 CBC WITH AUTO DIFF [HEME] AM CMP [COMPREHENSIVE METABOLIC PN,CMP] [CHEM] AM CPK [CREATINE KINASE,CK] [CHEM] AM CRP [C-REACTIVE PROTEIN] [CHEM] AM D Dimer [D-DIMER QUANTITATIVE] [COAG] AM FERRITIN [CHEM] AM LACTATE DEHYDROGENASE,LDH [CHEM] AM MAGNESIUM [CHEM] AM 10/31/19 05:11 CBC WITH AUTO DIFF [HEME] AM CMP [COMPREHENSIVE METABOLIC PN,CMP] [CHEM] AM CPK [CREATINE KINASE,CK] [CHEM] AM CRP [C-REACTIVE PROTEIN] [CHEM] AM D Dimer [D-DIMER QUANTITATIVE] [COAG] AM FERRITIN [CHEM] AM LACTATE DEHYDROGENASE,LDH [CHEM] AM MAGNESIUM [CHEM] AM 11/01/19 05:11 CBC WITH AUTO DIFF [HEME] AM CMP [COMPREHENSIVE METABOLIC PN,CMP] [CHEM] AM CPK [CREATINE KINASE,CK] [CHEM] AM CRP [C-REACTIVE PROTEIN] [CHEM] AM D Dimer [D-DIMER QUANTITATIVE] [COAG] AM FERRITIN [CHEM] AM LACTATE DEHYDROGENASE,LDH [CHEM] AM MAGNESIUM [CHEM] AM - Plan Plan:: Severe COVID-19 Hypoxemia Asthma * Patient is hypoxemic with oxygen saturations less than 94% on room air * Improved respiratory symptoms. RR 18 * Had a positive COVID-19 PCR on October 14. Exposure secondary to work associate while commuting to work. * Symptoms worsening over the last week. * History of asthma on Symbicort and montelukast * Pertinent normal labs: WBC 6.5-->6.06, normal INR and APTT, creatinine kinase 58-->42, troponin I <0.017, * Pertinent positive labs: increased ferritin 314-->265, increased LDH 316-->224 , mildly increased d-dimer 0.59-->0.57, CRP 1.6-->3.0 * Our hospital is not able to get remdesivir. Plan * Admit to ICU for close monitoring * FiO2 via nasal cannula to keep oxygen saturation above 90% * Daily CBC, CMP, magnesium, CRP, ferritin, LDH, creatinine kinase, d-dimer, * Every other day troponin, PT and PTT * Continue Symbicort and montelukast * Albuterol 2 puffs every 2 hours as needed * Avoid systemic steroids if possible * Prone positioning as tolerated for as long negative as hospital. * My transfer if she fulfills criterion for inclusion into remdesivir trial. Diabetes * Hemoglobin A1c 8.1 * Home meds include Farxiga and metformin Plan * Fingerstick blood sugars 4 times daily * Cover with sliding scale initially and consider long-acting insulin if needed * Continue lisinopril 5 mg daily and atorvastatin equivalent * Get hemoglobin A1c Morbid obesity * BMI 44.3 * This increases her risk for complications secondary to COVID and thromboembolic disease VTE prophylaxis will be with Lovenox 40 mg twice daily because of the increased risk of thromboembolic disease secondary to both COVID-19 and her obesity. CODE STATUS: Full code Droplet and contact isolation Disposition: Admit to ICU for close monitoring.
--- NOTE | 2019-10-27 16:58 | PCM.DCSUM1 ---
Discharge Summary - Hospital Course HPI Initial Comments: 39-year-old female with history of asthma and diabetes who is known positive for COVID-19 presents to the COVID clinic with worsening shortness of breath, cough, and fatigue. Patient initially was diagnosed on October 14 after developing symptoms. She was exposed by a work associate that she commuted with to work. Patient states that over the last several days her cough is worsened, she has had subjective fever and chills with sweats. She complains of a scratchy throat , headache, fatigue, diarrhea 3 times a day, and hoarseness. She states she has had one episode of mild hematemesis. She denies any wheezing. Her is also COVID-19 positive. Patient was a direct admission to the ICU after she was found to have O2 saturations on room air between 91 and 93%. Patient was also tachypneic with respiratory rate in the low 20s. Brief History: Severe COVID-19. Hypoxemia. Asthma. Patient is hypoxemic with oxygen saturations less than 94% on room air. Improved respiratory symptoms. RR 18. Had a positive COVID-19 PCR on October 14. Exposure secondary to work associate while commuting to work. Symptoms worsening over the last week. History of asthma on Symbicort and montelukast. Pertinent normal labs: WBC 6.5- ->6.06, normal INR and APTT, creatinine kinase 58-->42, troponin I <0.017,. Pertinent positive labs: increased ferritin 314-->265, increased LDH 316-->224, mildly increased d-dimer 0.59-->0.57, CRP 1.6-->3.0. Our hospital is not able to get remdesivir. Plan. Admit to ICU for close monitoring. FiO2 via nasal cannula to keep oxygen saturation above 90%. Daily CBC, CMP, magnesium, CRP, ferritin, LDH, creatinine kinase, d-dimer,. Every other day troponin, PT and PTT. Continue Symbicort and montelukast. Albuterol 2 puffs every 2 hours as needed. Avoid systemic steroids if possible. Prone positioning as tolerated for as long negative as hospital. My transfer if she fulfills criterion for inclusion into remdesivir trial. Diabetes. Hemoglobin A1c 8.1. Home meds include Farxiga and metformin. Plan. Fingerstick blood sugars 4 times daily. Cover with sliding scale initially and consider long-acting insulin if needed. Continue lisinopril 5 mg daily and atorvastatin equivalent. Get hemoglobin A1c. Morbid obesity. BMI 44.3. This increases her risk for complications secondary to COVID and thromboembolic disease. VTE prophylaxis will be with Lovenox 40 mg twice daily because of the increased risk of thromboembolic disease secondary to both COVID-19 and her obesity. CODE STATUS: Full code. Droplet and contact isolation. Disposition: Admit to ICU for close monitoring. Diagnosis: Stroke: No - Discharge Data Discharge Date: 10/27/19 Discharge Disposition: DC/Tfer to Acute Hospital 02 Condition: Stable - Referral to Home Health Primary Care Physician: Rosie Duff NP - Patient Summary/Data Hospital Course: Patient had uneventful overnight. She continues on 1 L nasal cannula, and when we try to wean her off her oxygen saturations dropped to 85%. She became short of breath without her oxygen even with minimal exertion while she was getting cleaned up this morning. We will try to get remdesivir for emergency authorization but was unable. Patient has been transferred to [facility] in [place] for possible trial of remdesivir. - Discharge Plan *PRESCRIPTION DRUG MONITORING PROGRAM REVIEWED*: No *COPY OF PRESCRIPTION DRUG MONITORING REPORT IN PATIENT YARI: No Home Medications: Home Meds Benzonatate 100 mg PO TID PRN 10/26/19 [History] Budesonide/Formoterol [Symbicort 160-4.5 MCG] 1 puff INH DAILY 10/26/19 [History ] Cholecalciferol (Vitamin D3) [Vitamin D3] 2,000 unit PO DAILY 10/26/19 [History] Dapagliflozin Propanediol [Farxiga] 10 mg PO DAILY 10/26/19 [History] Meclizine HCl 25 mg PO TID PRN 10/26/19 [History] Montelukast Sodium 10 mg PO DAILY 10/26/19 [History] Naproxen Sodium [Flanax] 220 mg PO BID PRN 10/26/19 [History] No122/Iron/Folic Acid [ Multi Tablet] 1 each PO DAILY 10/26/19 [History] Turmeric/Turmeric Root Extract [Turmeric 500 mg Capsule] 250 mg PO DAILY [History] Vitamin B Complex [B Complex] 1 each PO DAILY 10/26/19 [History] atorvaSTATin Calcium [Atorvastatin Calcium] 10 mg PO DAILY 10/26/19 [History] lisinopriL [Lisinopril] 5 mg PO DAILY 10/26/19 [History] metFORMIN HCl [Metformin HCl] 500 mg PO QID 10/26/19 [History] Oxygen Therapy Mode: Nasal Cannula Oxygen Flow Rate (L/min): 1 Maintain SPO2% less than: 97 Maintain SpO2% greater than: 89 Patient Handouts: Type 2 Diabetes Mellitus, Diagnosis, Adult - Discharge Summary/Plan Comment DC Time >30 min.: Yes Discharge Summary/Plan Comment: Transferred to [facility] in [place] for possible trial of remdesivir. - Patient Data Vitals - Most Recent: Last Vital Signs Temp 97.4 F 10/27/19 15:55 Pulse Resp 19 10/27/19 15:55 BP 119/68 10/27/19 15:55 Pulse Ox 97 10/27/19 15:55 Weight - Most Recent: 243 lb I&O - Last 24 hours: Intake & Output 10/27/19 10/27/19 10/27/19 06:59 14:59 22:59 Intake Total 1050 Output Total 770 Balance 280 Lab Results - Last 24 hrs: Laboratory Results - last 24 hr 10/26/19 10/26/19 10/26/19 Range/Units 15:25 15:25 15:25 WBC 6.85 (3.98-10.04) K/mm3 RBC 5.84 H (3.98-5.22) M/mm3 Hgb 14.9 (11.2-15.7) gm/dl Hct 45.4 H (34.1-44.9) % MCV 77.7 L (79.4-94.8) fl MCH 25.5 L (25.6-32.2) pg MCHC 32.8 (32.2-35.5) g/dl RDW Std Deviation 39.3 (36.4-46.3) fL Plt Count 326 (182-369) K/mm3 MPV 9.6 (9.4-12.3) fl Neut % (Auto) 61.3 (34.0-71.1) % Lymph % (Auto) 27.4 (19.3-51.7) % [place] % (Auto) 6.7 (4.7-12.5) % Eos % (Auto) 3.9 (0.7-5.8) Baso % (Auto) 0.3 (0.1-1.2) % Neut # (Auto) 4.19 (1.56-6.13) K/mm3 Lymph # (Auto) 1.88 (1.18-3.74) K/mm3 [place] # (Auto) 0.46 H (0.24-0.36) K/mm3 Eos # (Auto) 0.27 (0.04-0.36) K/mm3 Baso # (Auto) 0.02 (0.01-0.08) K/mm3 Manual Slide Review Abnormal smear ESR 58 H (0-20) mm/hr PT 9.8 (9.7-12.0) SECONDS INR 0.93 APTT 25 (22-31) SECONDS D-Dimer, Quantitative (0.19-0.50) mg/L Puncture Site ABG pH (7.35-7.45) ABG pCO2 (35.0-45.0) mmHg ABG pO2 (80.0-100.0) mmHg ABG HCO3 (22.0-26.0) meq/L ABG O2 Saturation (96.0-97.0) % ABG Base Excess (-2-2.0) Amos Test A-a Gradient mmHg O2 Delivery Device Oxygen Flow Rate FiO2 (21.00-100.00) % Sodium (136-145) mEq/L Potassium (3.5-5.1) mEq/L Chloride (98-107) mEq/L Carbon Dioxide (21-32) mEq/L Anion Gap (5-15) BUN (7-18) mg/dL Creatinine (0.55-1.02) mg/dL Est Cr Clr Drug Dosing mL/min Estimated GFR (MDRD) (>60) mL/min BUN/Creatinine Ratio (14-18) Glucose (74-106) mg/dL POC Glucose (70-105) mg/dL Hemoglobin A1c (4.50-6.20) % Calcium (8.5-10.1) mg/dL Magnesium (1.8-2.4) mg/dl Ferritin (8-252) ng/ml Total Bilirubin (0.2-1.0) mg/dL AST (15-37) U/L ALT (14-59) U/L Alkaline Phosphatase (46-116) U/L Lactate Dehydrogenase (81-234) U/L Creatine Kinase (26-192) U/L Troponin I (0.00-0.056) ng/mL C-Reactive Protein (<1.0) mg/dL NT-Pro-B Natriuret Pep (0-125) pg/mL Total Protein (6.4-8.2) g/dl Albumin (3.4-5.0) g/dl Globulin gm/dL Albumin/Globulin Ratio (1-2) 10/26/19 10/26/19 10/26/19 Range/Units 15:25 15:25 15:25 WBC (3.98-10.04) K/mm3 RBC (3.98-5.22) M/mm3 Hgb (11.2-15.7) gm/dl Hct (34.1-44.9) % MCV (79.4-94.8) fl MCH (25.6-32.2) pg MCHC (32.2-35.5) g/dl RDW Std Deviation (36.4-46.3) fL Plt Count (182-369) K/mm3 MPV (9.4-12.3) fl Neut % (Auto) (34.0-71.1) % Lymph % (Auto) (19.3-51.7) % [place] % (Auto) (4.7-12.5) % Eos % (Auto) (0.7-5.8) Baso % (Auto) (0.1-1.2) % Neut # (Auto) (1.56-6.13) K/mm3 Lymph # (Auto) (1.18-3.74) K/mm3 [place] # (Auto) (0.24-0.36) K/mm3 Eos # (Auto) (0.04-0.36) K/mm3 Baso # (Auto) (0.01-0.08) K/mm3 Manual Slide Review ESR (0-20) mm/hr PT (9.7-12.0) SECONDS INR APTT (22-31) SECONDS D-Dimer, Quantitative (0.19-0.50) mg/L Puncture Site ABG pH (7.35-7.45) ABG pCO2 (35.0-45.0) mmHg ABG pO2 (80.0-100.0) mmHg ABG HCO3 (22.0-26.0) meq/L ABG O2 Saturation (96.0-97.0) % ABG Base Excess (-2-2.0) Amos Test A-a Gradient mmHg O2 Delivery Device Oxygen Flow Rate FiO2 (21.00-100.00) % Sodium 139 (136-145) mEq/L Potassium 3.4 L (3.5-5.1) mEq/L Chloride 102 (98-107) mEq/L Carbon Dioxide 29 (21-32) mEq/L Anion Gap 11.4 (5-15) BUN 9 (7-18) mg/dL Creatinine 0.7 (0.55-1.02) mg/dL Est Cr Clr Drug Dosing 86.18 mL/min Estimated GFR (MDRD) > 60 (>60) mL/min BUN/Creatinine Ratio 12.9 L (14-18) Glucose 144 H (74-106) mg/dL POC Glucose (70-105) mg/dL Hemoglobin A1c (4.50-6.20) % Calcium 8.7 (8.5-10.1) mg/dL Magnesium 1.6 L (1.8-2.4) mg/dl Ferritin 314 H (8-252) ng/ml Total Bilirubin 0.4 (0.2-1.0) mg/dL AST 17 (15-37) U/L ALT 24 (14-59) U/L Alkaline Phosphatase 81 (46-116) U/L Lactate Dehydrogenase 316 H (81-234) U/L Creatine Kinase 58 (26-192) U/L Troponin I < 0.017 (0.00-0.056) ng/mL C-Reactive Protein 3.6 H* (<1.0) mg/dL NT-Pro-B Natriuret Pep 95 (0-125) pg/mL Total Protein 7.8 (6.4-8.2) g/dl Albumin 2.9 L (3.4-5.0) g/dl Globulin 4.9 gm/dL Albumin/Globulin Ratio 0.6 L (1-2) 10/26/19 10/26/19 10/26/19 Range/Units 15:25 17:45 18:02 WBC (3.98-10.04) K/mm3 RBC (3.98-5.22) M/mm3 Hgb (11.2-15.7) gm/dl Hct (34.1-44.9) % MCV (79.4-94.8) fl MCH (25.6-32.2) pg MCHC (32.2-35.5) g/dl RDW Std Deviation (36.4-46.3) fL Plt Count (182-369) K/mm3 MPV (9.4-12.3) fl Neut % (Auto) (34.0-71.1) % Lymph % (Auto) (19.3-51.7) % [place] % (Auto) (4.7-12.5) % Eos % (Auto) (0.7-5.8) Baso % (Auto) (0.1-1.2) % Neut # (Auto) (1.56-6.13) K/mm3 Lymph # (Auto) (1.18-3.74) K/mm3 [place] # (Auto) (0.24-0.36) K/mm3 Eos # (Auto) (0.04-0.36) K/mm3 Baso # (Auto) (0.01-0.08) K/mm3 Manual Slide Review ESR (0-20) mm/hr PT (9.7-12.0) SECONDS INR APTT (22-31) SECONDS D-Dimer, Quantitative 0.59 H (0.19-0.50) mg/L Puncture Site Lt radial ABG pH 7.37 (7.35-7.45) ABG pCO2 43.2 (35.0-45.0) mmHg ABG pO2 79.0 L (80.0-100.0) mmHg ABG HCO3 24.6 (22.0-26.0) meq/L ABG O2 Saturation 94.9 L (96.0-97.0) % ABG Base Excess -0.3 (-2-2.0) Amos Test Positive A-a Gradient 38 mmHg O2 Delivery Device Nasal cannula Oxygen Flow Rate 1.0 FiO2 24.00 (21.00-100.00) % Sodium (136-145) mEq/L Potassium (3.5-5.1) mEq/L Chloride (98-107) mEq/L Carbon Dioxide (21-32) mEq/L Anion Gap (5-15) BUN (7-18) mg/dL Creatinine (0.55-1.02) mg/dL Est Cr Clr Drug Dosing mL/min Estimated GFR (MDRD) (>60) mL/min BUN/Creatinine Ratio (14-18) Glucose (74-106) mg/dL POC Glucose 114 H (70-105) mg/dL Hemoglobin A1c (4.50-6.20) % Calcium (8.5-10.1) mg/dL Magnesium (1.8-2.4) mg/dl Ferritin (8-252) ng/ml Total Bilirubin (0.2-1.0) mg/dL AST (15-37) U/L ALT (14-59) U/L Alkaline Phosphatase (46-116) U/L Lactate Dehydrogenase (81-234) U/L Creatine Kinase (26-192) U/L Troponin I (0.00-0.056) ng/mL C-Reactive Protein (<1.0) mg/dL NT-Pro-B Natriuret Pep (0-125) pg/mL Total Protein (6.4-8.2) g/dl Albumin (3.4-5.0) g/dl Globulin gm/dL Albumin/Globulin Ratio (1-2) 10/26/19 10/27/19 10/27/19 Range/Units 20:26 05:36 05:40 WBC 6.06 (3.98-10.04) K/mm3 RBC 5.51 H (3.98-5.22) M/mm3 Hgb 14.0 (11.2-15.7) gm/dl Hct 43.5 (34.1-44.9) % MCV 78.9 L (79.4-94.8) fl MCH 25.4 L (25.6-32.2) pg MCHC 32.2 (32.2-35.5) g/dl RDW Std Deviation 40.0 (36.4-46.3) fL Plt Count 303 (182-369) K/mm3 MPV 9.2 L (9.4-12.3) fl Neut % (Auto) 51.4 (34.0-71.1) % Lymph % (Auto) 35.0 (19.3-51.7) % [place] % (Auto) 8.3 (4.7-12.5) % Eos % (Auto) 4.3 (0.7-5.8) Baso % (Auto) 0.7 (0.1-1.2) % Neut # (Auto) 3.12 (1.56-6.13) K/mm3 Lymph # (Auto) 2.12 (1.18-3.74) K/mm3 [place] # (Auto) 0.50 H (0.24-0.36) K/mm3 Eos # (Auto) 0.26 (0.04-0.36) K/mm3 Baso # (Auto) 0.04 (0.01-0.08) K/mm3 Manual Slide Review Normal smear ESR (0-20) mm/hr PT (9.7-12.0) SECONDS INR APTT (22-31) SECONDS D-Dimer, Quantitative (0.19-0.50) mg/L Puncture Site ABG pH (7.35-7.45) ABG pCO2 (35.0-45.0) mmHg ABG pO2 (80.0-100.0) mmHg ABG HCO3 (22.0-26.0) meq/L ABG O2 Saturation (96.0-97.0) % ABG Base Excess (-2-2.0) Amos Test A-a Gradient mmHg O2 Delivery Device Oxygen Flow Rate FiO2 (21.00-100.00) % Sodium (136-145) mEq/L Potassium (3.5-5.1) mEq/L Chloride (98-107) mEq/L Carbon Dioxide (21-32) mEq/L Anion Gap (5-15) BUN (7-18) mg/dL Creatinine (0.55-1.02) mg/dL Est Cr Clr Drug Dosing mL/min Estimated GFR (MDRD) (>60) mL/min BUN/Creatinine Ratio (14-18) Glucose (74-106) mg/dL POC Glucose 129 H 149 H (70-105) mg/dL Hemoglobin A1c (4.50-6.20) % Calcium (8.5-10.1) mg/dL Magnesium (1.8-2.4) mg/dl Ferritin (8-252) ng/ml Total Bilirubin (0.2-1.0) mg/dL AST (15-37) U/L ALT (14-59) U/L Alkaline Phosphatase (46-116) U/L Lactate Dehydrogenase (81-234) U/L Creatine Kinase (26-192) U/L Troponin I (0.00-0.056) ng/mL C-Reactive Protein (<1.0) mg/dL NT-Pro-B Natriuret Pep (0-125) pg/mL Total Protein (6.4-8.2) g/dl Albumin (3.4-5.0) g/dl Globulin gm/dL Albumin/Globulin Ratio (1-2) 10/27/19 10/27/19 10/27/19 Range/Units 05:40 05:40 05:40 WBC (3.98-10.04) K/mm3 RBC (3.98-5.22) M/mm3 Hgb (11.2-15.7) gm/dl Hct (34.1-44.9) % MCV (79.4-94.8) fl MCH (25.6-32.2) pg MCHC (32.2-35.5) g/dl RDW Std Deviation (36.4-46.3) fL Plt Count (182-369) K/mm3 MPV (9.4-12.3) fl Neut % (Auto) (34.0-71.1) % Lymph % (Auto) (19.3-51.7) % [place] % (Auto) (4.7-12.5) % Eos % (Auto) (0.7-5.8) Baso % (Auto) (0.1-1.2) % Neut # (Auto) (1.56-6.13) K/mm3 Lymph # (Auto) (1.18-3.74) K/mm3 [place] # (Auto) (0.24-0.36) K/mm3 Eos # (Auto) (0.04-0.36) K/mm3 Baso # (Auto) (0.01-0.08) K/mm3 Manual Slide Review ESR (0-20) mm/hr PT (9.7-12.0) SECONDS INR APTT (22-31) SECONDS D-Dimer, Quantitative 0.57 H (0.19-0.50) mg/L Puncture Site ABG pH (7.35-7.45) ABG pCO2 (35.0-45.0) mmHg ABG pO2 (80.0-100.0) mmHg ABG HCO3 (22.0-26.0) meq/L ABG O2 Saturation (96.0-97.0) % ABG Base Excess (-2-2.0) Amos Test A-a Gradient mmHg O2 Delivery Device Oxygen Flow Rate FiO2 (21.00-100.00) % Sodium 140 (136-145) mEq/L Potassium 3.7 (3.5-5.1) mEq/L Chloride 103 (98-107) mEq/L Carbon Dioxide 29 (21-32) mEq/L Anion Gap 11.7 (5-15) BUN 10 (7-18) mg/dL Creatinine 0.5 L (0.55-1.02) mg/dL Est Cr Clr Drug Dosing 120.66 mL/min Estimated GFR (MDRD) > 60 (>60) mL/min BUN/Creatinine Ratio 20.0 H (14-18) Glucose 180 H (74-106) mg/dL POC Glucose (70-105) mg/dL Hemoglobin A1c (4.50-6.20) % Calcium 8.0 L (8.5-10.1) mg/dL Magnesium 2.3 (1.8-2.4) mg/dl Ferritin 265 H (8-252) ng/ml Total Bilirubin 0.5 (0.2-1.0) mg/dL AST 16 (15-37) U/L ALT 21 (14-59) U/L Alkaline Phosphatase 64 (46-116) U/L Lactate Dehydrogenase 224 (81-234) U/L Creatine Kinase 42 (26-192) U/L Troponin I (0.00-0.056) ng/mL C-Reactive Protein 3.0 H* (<1.0) mg/dL NT-Pro-B Natriuret Pep (0-125) pg/mL Total Protein 7.3 (6.4-8.2) g/dl Albumin 2.8 L (3.4-5.0) g/dl Globulin 4.5 gm/dL Albumin/Globulin Ratio 0.6 L (1-2) 10/27/19 10/27/19 10/27/19 Range/Units 05:40 11:34 16:24 WBC (3.98-10.04) K/mm3 RBC (3.98-5.22) M/mm3 Hgb (11.2-15.7) gm/dl Hct (34.1-44.9) % MCV (79.4-94.8) fl MCH (25.6-32.2) pg MCHC (32.2-35.5) g/dl RDW Std Deviation (36.4-46.3) fL Plt Count (182-369) K/mm3 MPV (9.4-12.3) fl Neut % (Auto) (34.0-71.1) % Lymph % (Auto) (19.3-51.7) % [place] % (Auto) (4.7-12.5) % Eos % (Auto) (0.7-5.8) Baso % (Auto) (0.1-1.2) % Neut # (Auto) (1.56-6.13) K/mm3 Lymph # (Auto) (1.18-3.74) K/mm3 [place] # (Auto) (0.24-0.36) K/mm3 Eos # (Auto) (0.04-0.36) K/mm3 Baso # (Auto) (0.01-0.08) K/mm3 Manual Slide Review ESR (0-20) mm/hr PT (9.7-12.0) SECONDS INR APTT (22-31) SECONDS D-Dimer, Quantitative (0.19-0.50) mg/L Puncture Site ABG pH (7.35-7.45) ABG pCO2 (35.0-45.0) mmHg ABG pO2 (80.0-100.0) mmHg ABG HCO3 (22.0-26.0) meq/L ABG O2 Saturation (96.0-97.0) % ABG Base Excess (-2-2.0) Amos Test A-a Gradient mmHg O2 Delivery Device Oxygen Flow Rate FiO2 (21.00-100.00) % Sodium (136-145) mEq/L Potassium (3.5-5.1) mEq/L Chloride (98-107) mEq/L Carbon Dioxide (21-32) mEq/L Anion Gap (5-15) BUN (7-18) mg/dL Creatinine (0.55-1.02) mg/dL Est Cr Clr Drug Dosing mL/min Estimated GFR (MDRD) (>60) mL/min BUN/Creatinine Ratio (14-18) Glucose (74-106) mg/dL POC Glucose 207 H 200 H (70-105) mg/dL Hemoglobin A1c 8.10 H (4.50-6.20) % Calcium (8.5-10.1) mg/dL Magnesium (1.8-2.4) mg/dl Ferritin (8-252) ng/ml Total Bilirubin (0.2-1.0) mg/dL AST (15-37) U/L ALT (14-59) U/L Alkaline Phosphatase (46-116) U/L Lactate Dehydrogenase (81-234) U/L Creatine Kinase (26-192) U/L Troponin I (0.00-0.056) ng/mL C-Reactive Protein (<1.0) mg/dL NT-Pro-B Natriuret Pep (0-125) pg/mL Total Protein (6.4-8.2) g/dl Albumin (3.4-5.0) g/dl Globulin gm/dL Albumin/Globulin Ratio (1-2) Med Orders - Current: Current Medications Acetaminophen (Tylenol) 650 mg PO Q4H PRN PRN Reason: Pain (Mild 1-3)/fever Last Admin: 10/27/19 11:42 Dose: 650 mg Albuterol (Proventil) 2.5 mg NEB Q2H PRN PRN Reason: WHEEZING Benzonatate (Tessalon Perles) 100 mg PO TID PRN PRN Reason: Cough Last Admin: 10/26/19 20:34 Dose: 100 mg Enoxaparin Sodium (Lovenox) 40 mg SUBCUT Q12H [facility] Last Admin: 10/27/19 08:03 Dose: 40 mg Insulin Human Lispro (Humalog) 0 unit SUBCUT QIDACANDBED [facility]; Protocol Last Admin: 10/27/19 16:25 Dose: 2 unit Lisinopril (Prinivil) 5 mg PO DAILY [facility] Last Admin: 10/27/19 08:03 Dose: 5 mg Meclizine HCl (Antivert) 25 mg PO TID PRN PRN Reason: DIZZINESS Mometasone Furoate/Formoterol Fumar (Dulera 200-5 Mcg) 0 puff IH BID [facility] Last Admin: 10/27/19 08:04 Dose: 2 puff Montelukast Sodium (Singulair) 10 mg PO DAILY [facility] Last Admin: 10/27/19 08:04 Dose: 10 mg Simvastatin (Zocor) 10 mg PO BEDTIME AD Discontinued Medications Magnesium Sulfate 4 gm/ Premix 50 mls @ 12.5 mls/hr IV ONETIME ONE Stop: 10/26/19 22:26 Last Admin: 10/26/19 20:32 Dose: 12.5 mls/hr Mometasone Furoate/Formoterol Fumar (Dulera 200-5 Mcg) 0 puff IH BIDRT [facility] Last Admin: 10/26/19 22:47 Dose: 2 puff Potassium Chloride (Klor-Con M20) 40 meq PO ONETIME ONE Stop: 10/26/19 22:01 Last Admin: 10/26/19 22:36 Dose: Not Given
[2019-10-27] MEDS ORDERED: Simvastatin 10 MG Tab PO SCH (21:00)
== END 2019-10-27 20:00 | DRG 137 ==
LOC: JD.ICU 15:19
PROVIDERS: ADMIT Family Medicine; ATTEND Family Medicine
PROC: 8E0ZXY6 Isolation (ICD-10-PCS; principal; 2019-10-26)
DX: U07.1 COVID-19 (principal); J45.909 Unspecified asthma, uncomplicated; E11.9 Type 2 diabetes mellitus without complications; E66.01 Morbid (severe) obesity due to excess calories; R09.02 Hypoxemia; Z88.1 Allergy status to other antibiotic agents; Z91.013 Allergy to seafood; Z91.018 Allergy to other foods; Z88.5 Allergy status to narcotic agent; Z79.84 Long term (current) use of oral hypoglycemic drugs; Z79.899 Other long term (current) drug therapy; Z68.44 Body mass index [BMI] 60.0-69.9, adult
CPT/HCPCS: 36415; 36600; 71045; 71045-26; 80053; 82550; 82728; 82803; 82962; 83036; 83615; 83735; 83880; 84145; 84484; 85025; 85379; 85610; 85652; 85730; 86140; 93005; 94640; 99223; 99239; A9270-GY; J1650; J1815-GY; J3475

== ENCOUNTER 2020-02-02 10:41 | Emergency (ER) | payer BC, OTHER ==
--- NOTE | 2020-02-02 11:40 | EDM.PDOCBH ---
ED HPI GENERAL MEDICAL PROBLEM - General Chief Complaint: Behavioral/Psych Stated Complaint: MENTAL EVAL Time Seen by Provider: 02/02/20 11:07 Source of Information: Reports: Patient History Limitations: Reports: No Limitations - History of Present Illness INITIAL COMMENTS - FREE TEXT/NARRATIVE: Patient is a 39-year-old female who presents to the emergency department with complaints of anxiety and depression. She states his symptoms have been progressively worsening over the last few weeks. She is had numerous life stressors recently including moving to the [facility] from the [facility], recently getting , starting a new job, and having COVID-19 in October. 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 Over the last few weeks, she has had problems with increased anxiety and headaches. She is had difficulty sleeping. She states about 3 weeks ago she had a fleeting thought of crashing her car but denies any suicidal thoughts at this time. Patient states that she has an aunt back in the [facility] who is a counselor. This last Friday she called and talked to her about how she has been feeling. Her aunt recommended that she see her primary care provider to get started on medication as well as establish a counselor locally. Patient went to see her primary care provider, Judy Jiménez NP today and was sent to the emergency department for evaluation. Patient has a history of hypothyroidism, however states that she is not on medications at that the last time her thyroid was checked it was found to be normal. She is not actively suicidal and states that she has a good support system at home and that her is very supportive. Patient does not have children. She does not feel that she needs to be admitted for psychiatric treatment but would prefer treatment on an outpatient basis. She has not seen a counselor locally thus far and has never been on medications to treat her anxiety and depression. - Related Data Allergies Allergy/AdvReac Type Severity Reaction Status Date / Time celecoxib [From Celebrex] Allergy Severe Anaphylactic Verified 02/02/20 11:01 Shock shellfish derived Allergy Intermediate Rash Verified 02/02/20 11:01 chicken derived Allergy Mild Cannot Verified 02/02/20 11:01 Remember grass pollen Allergy Mild Cannot Verified 02/02/20 11:01 Remember tramadol Allergy Mild Cannot Verified 02/02/20 11:01 Remember Home Meds: Home Meds Budesonide/Formoterol [Symbicort 160-4.5 MCG] 1 puff INH DAILY 10/26/19 [History] Cholecalciferol (Vitamin D3) [Vitamin D3] 2,000 unit PO DAILY 10/26/19 [History] Dapagliflozin Propanediol [Farxiga] 10 mg PO DAILY 10/26/19 [History] Meclizine HCl 25 mg PO TID PRN 10/26/19 [History] Montelukast Sodium 10 mg PO DAILY 10/26/19 [History] Naproxen Sodium [Flanax] 220 mg PO BID PRN 10/26/19 [History] atorvaSTATin Calcium [Atorvastatin Calcium] 10 mg PO DAILY 10/26/19 [History] lisinopriL [Lisinopril] 5 mg PO DAILY 10/26/19 [History] metFORMIN HCl [Metformin HCl] 500 mg PO QID 10/26/19 [History] Escitalopram [Lexapro] 20 mg PO ASDIRECTED #30 tab 02/02/20 [Rx] hydrOXYzine HCL [Atarax] 50 mg PO Q6H PRN #30 tab 02/02/20 [Rx] Past Medical History HEENT History: Reports: Other (See Below) Other HEENT History: "FESS" surgery Cardiovascular History: Reports: High Cholesterol, Hypertension Respiratory History: Reports: Asthma Musculoskeletal History: Reports: Fracture Neurological History: Reports: Migraines Psychiatric History: Reports: Depression, PTSD Endocrine/Metabolic History: Reports: Diabetes, Type II Hematologic History: Reports: Anemia Other Hematologic History: with menstral periods. - Infectious Disease History Infectious Disease History: Reports: Chicken Pox, Novel Coronavirus Social & Family History - Tobacco Use Smoking Status *Q: Never Smoker Second Hand Smoke Exposure: No - Caffeine Use Caffeine Use: Reports: Soda - Recreational Drug Use Recreational Drug Use: No ED ROS GENERAL - Review of Systems Review Of Systems: See Below Constitutional: Reports: No Symptoms HEENT: Reports: No Symptoms Respiratory: Reports: No Symptoms Cardiovascular: Reports: No Symptoms Endocrine: Reports: No Symptoms GI/Abdominal: Reports: No Symptoms : Reports: No Symptoms Musculoskeletal: Reports: No Symptoms Skin: Reports: No Symptoms Neurological: Reports: No Symptoms Psychiatric: Reports: Anxiety, Depression. Denies: Agitation, Hallucinations, Suicidal Ideation Hematologic/Lymphatic: Reports: No Symptoms Immunologic: Reports: No Symptoms ED EXAM, BEHAVIORAL HEALTH - Physical Exam Exam: See Below Exam Limited By: No Limitations General Appearance: Alert, WD/WN, No Apparent Distress Respiratory/Chest: No Respiratory Distress, Lungs Clear, Normal Breath Sounds, No Accessory Muscle Use, Chest Non-Tender Cardiovascular: Normal Peripheral Pulses, Regular Rate, Rhythm, No Edema, No Gallop, No JVD, No Murmur, No Rub Neurological: Alert, Normal Mood/Affect, CN II-XII Intact, Normal Cognition, Normal Gait, Normal Reflexes, No Motor/Sensory Deficits, Oriented x 3 Psychiatric: Alert, Normal Cognition, Normal Mood, Oriented, Depressed Mood. No: Agitated, Uncooperative, Suicidal Plan, Suicidal Thoughts, Auditory Hallucinations, Visual Hallucinations, Paranoid Thoughts, Threatening Behavior COURSE, BEHAVIORAL HEALTH COMP - Course Vital Signs: Last Vital Signs Temp 96.4 F L 02/02/20 10:45 Pulse 76 02/02/20 10:45 Resp 16 02/02/20 10:45 BP 130/67 02/02/20 10:45 Pulse Ox 94 L 02/02/20 10:45 Orders, Labs, Meds: Laboratory Tests 02/02/20 02/02/20 02/02/20 Range/Units 10:50 10:50 10:50 WBC (3.98-10.04) K/mm3 RBC (3.98-5.22) M/mm3 Hgb (11.2-15.7) gm/dl Hct (34.1-44.9) % MCV (79.4-94.8) fl MCH (25.6-32.2) pg MCHC (32.2-35.5) g/dl RDW Std Deviation (36.4-46.3) fL Plt Count (182-369) K/mm3 MPV (9.4-12.3) fl Neutrophils % (Manual) (40-60) % Band Neutrophils % (0-10) % Lymphocytes % (Manual) (20-40) % Atypical Lymphs % % Monocytes % (Manual) (2-10) % Eosinophils % (Manual) (0.7-5.8) % Basophils % (Manual) (0.1-1.2) Platelet Estimate Plt Morphology Comment Macrocytosis RBC Morph Comment Sodium (136-145) mEq/L Potassium (3.5-5.1) mEq/L Chloride (98-107) mEq/L Carbon Dioxide (21-32) mEq/L Anion Gap (5-15) BUN (7-18) mg/dL Creatinine (0.55-1.02) mg/dL Est Cr Clr Drug Dosing mL/min Estimated GFR (MDRD) (>60) mL/min BUN/Creatinine Ratio (14-18) Glucose (74-106) mg/dL Calcium (8.5-10.1) mg/dL Magnesium (1.8-2.4) mg/dl Total Bilirubin (0.2-1.0) mg/dL AST (15-37) U/L ALT (14-59) U/L Alkaline Phosphatase (46-116) U/L Total Protein (6.4-8.2) g/dl Albumin (3.4-5.0) g/dl Globulin gm/dL Albumin/Globulin Ratio (1-2) TSH 3rd Generation (0.358-3.74) uIU/mL Urine Color Yellow (Yellow) Urine Appearance Clear (Clear) Urine pH 6.0 (5.0-8.0) Ur Specific [place] 1.020 (1.005-1.030) Urine Protein Negative (Negative) Urine Glucose (UA) 2+ H (Negative) Urine Ketones Negative (Negative) Urine Occult Blood Negative (Negative) Urine Nitrite Negative (Negative) Urine Bilirubin Negative (Negative) Urine Urobilinogen 0.2 (0.2-1.0) Ur Leukocyte Esterase Negative (Negative) Urine RBC Not seen (0-5) /hpf Urine WBC 0-5 (0-5) /hpf Ur Epithelial Cells 0-5 (0-5) /hpf Urine Bacteria Few (FEW) /hpf Urine Mucus Not seen (FEW) /hpf Urine Yeast (Budding) Few H (NOT SEEN) Urine HCG, Qual Negative (NEGATIVE) Urine Opiates Screen Negative (IBRWLD=255) Ur Buprenorphine Scrn Negative (CUTOFF=10) Ur Oxycodone Screen Negative (HFS0VV=656) Urine Methadone Screen Negative (XIXXGR=469) Ur Propoxyphene Screen Negative (PSYZSU=146) Ur Barbiturates Screen Negative (OVOOMV=865) Ur Tricyclics Screen Negative (EJMNAC=334) Ur Phencyclidine Scrn Negative (CUTOFF=25) Ur Amphetamine Screen Negative (XHKKUU=789) U Methamphetamines Scrn Negative (SQCSSW=908) U Benzodiazepines Scrn Negative (CUTEFM=040) U Cocaine Metab Screen Negative (CUNCYO=239) U Marijuana (THC) Screen Negative (CUTOFF=50) 02/02/20 02/02/20 02/02/20 Range/Units 12:08 12:08 12:08 WBC 8.69 (3.98-10.04) K/mm3 RBC 5.92 H (3.98-5.22) M/mm3 Hgb 15.1 (11.2-15.7) gm/dl Hct 46.4 H (34.1-44.9) % MCV 78.4 L (79.4-94.8) fl MCH 25.5 L (25.6-32.2) pg MCHC 32.5 (32.2-35.5) g/dl RDW Std Deviation 40.9 (36.4-46.3) fL Plt Count 313 (182-369) K/mm3 MPV 9.4 (9.4-12.3) fl Neutrophils % (Manual) 58 (40-60) % Band Neutrophils % 0 (0-10) % Lymphocytes % (Manual) 34 (20-40) % Atypical Lymphs % 0 % Monocytes % (Manual) 4 (2-10) % Eosinophils % (Manual) 4 (0.7-5.8) % Basophils % (Manual) 0 L (0.1-1.2) Platelet Estimate Adequate Plt Morphology Comment Normal Macrocytosis Few RBC Morph Comment Not Reportable Sodium 135 L (136-145) mEq/L Potassium 3.8 (3.5-5.1) mEq/L Chloride 100 (98-107) mEq/L Carbon Dioxide 29 (21-32) mEq/L Anion Gap 9.8 (5-15) BUN 10 (7-18) mg/dL Creatinine 0.5 L (0.55-1.02) mg/dL Est Cr Clr Drug Dosing 120.66 mL/min Estimated GFR (MDRD) > 60 (>60) mL/min BUN/Creatinine Ratio 20.0 H (14-18) Glucose 157 H (74-106) mg/dL Calcium 8.8 (8.5-10.1) mg/dL Magnesium 2.1 (1.8-2.4) mg/dl Total Bilirubin 0.5 (0.2-1.0) mg/dL AST 15 (15-37) U/L ALT 34 (14-59) U/L Alkaline Phosphatase 76 (46-116) U/L Total Protein 7.7 (6.4-8.2) g/dl Albumin 3.3 L (3.4-5.0) g/dl Globulin 4.4 gm/dL Albumin/Globulin Ratio 0.8 L (1-2) TSH 3rd Generation 2.706 (0.358-3.74) uIU/mL Urine Color (Yellow) Urine Appearance (Clear) Urine pH (5.0-8.0) Ur Specific [place] (1.005-1.030) Urine Protein (Negative) Urine Glucose (UA) (Negative) Urine Ketones (Negative) Urine Occult Blood (Negative) Urine Nitrite (Negative) Urine Bilirubin (Negative) Urine Urobilinogen (0.2-1.0) Ur Leukocyte Esterase (Negative) Urine RBC (0-5) /hpf Urine WBC (0-5) /hpf Ur Epithelial Cells (0-5) /hpf Urine Bacteria (FEW) /hpf Urine Mucus (FEW) /hpf Urine Yeast (Budding) (NOT SEEN) Urine HCG, Qual (NEGATIVE) Urine Opiates Screen (EJKIGI=135) Ur Buprenorphine Scrn (CUTOFF=10) Ur Oxycodone Screen (ICQ8DC=137) Urine Methadone Screen (YVPDPS=001) Ur Propoxyphene Screen (UEOXUD=590) Ur Barbiturates Screen (YHVVWX=453) Ur Tricyclics Screen (GMWVSL=339) Ur Phencyclidine Scrn (CUTOFF=25) Ur Amphetamine Screen (EBTUOS=329) U Methamphetamines Scrn (TODWJL=361) U Benzodiazepines Scrn (KSMETH=323) U Cocaine Metab Screen (QEKYMU=999) U Marijuana (THC) Screen (CUTOFF=50) Re-Assessment/Re-Exam: Patient's work-up was found to be grossly unremarkable. Lab results were n ormal. TSH was within normal limits. Patient denies suicidal thoughts or plan. She would like to begin outpatient treatment for her depression and anxiety. We will start her on Lexapro for treatment of her anxiety and depression as well as hydroxyzine as needed for anxiety. She has been provided with a list of local counselors. Recommend that she schedule an appointment with a counselor of her choosing. Discussed that she should follow-up with her primary care provider in 3 to 4 weeks for a recheck or sooner if she has any problems. Also recommended that if she has any worsening of symptoms or develops suicidal thoughts, she should return to the emergency department. She has also been provided with the [facility] crisis number. Discharge instructions as documented. Departure - Departure Time of Disposition: 12:57 Disposition: Home, Self-Care 01 Condition: Good Clinical Impression: Anxiety, Depressive disorder - Discharge Information *PRESCRIPTION DRUG MONITORING PROGRAM REVIEWED*: No *COPY OF PRESCRIPTION DRUG MONITORING REPORT IN PATIENT YARI: No Prescriptions: hydrOXYzine HCL [Atarax] 50 mg PO Q6H PRN #30 tab PRN Reason: Anxiety Escitalopram [Lexapro] 20 mg PO ASDIRECTED #30 tab Instructions: Living With Depression, Suicidal Feelings: How to Help Yourself, Living With Anxiety Referrals: Rosie Duff NP [Primary Care Provider] - Forms: ED Department Discharge Additional Instructions: You were seen in the emergency department today for feelings of anxiety and depression. Blood work was completed and was found to be normal. You have been started on Lexapro for your anxiety and depression. Take this medication as prescribed. Be aware that this medication takes 3-4 weeks to become effective and during that time, you may experiences intermittent worsening of your symptoms. You have also been prescribed hydroxyzine to use as needed for your anxiety and to help with sleep. Use this medication only as prescribed and do not drive after taking it as it is sedating. Recommend that you arrange to meet with a counselor to help talk about your feelings. A list of local counselors has been provided to you. Follow-up with your primary care provider in 4 weeks to reassess the effectiveness of your medications. If you should experience any worsening symptoms or develop any thoughts of self harm, please do not hesitate to return to the emergency department or contact [facility] Crisis Line at [phone]. Sepsis Event Note (ED) - Evaluation Sepsis Screening Result: No Definite Risk - Focused Exam Vital Signs: Vital Signs Temp Pulse Resp BP Pulse Ox 02/02/20 10:45 96.4 F L 76 16 130/67 94 L
== END 2020-02-02 13:27 | disposition home or self-care (01) ==
LOC: JD.ED 10:41
DX: F41.9 Anxiety disorder, unspecified (principal); F32.9 Major depressive disorder, single episode, unspecified; E78.00 Pure hypercholesterolemia, unspecified; I10 Essential (primary) hypertension; J45.909 Unspecified asthma, uncomplicated; E11.9 Type 2 diabetes mellitus without complications; Z79.84 Long term (current) use of oral hypoglycemic drugs; Z88.8 Allergy status to other drugs, medicaments and biological substances; Z91.013 Allergy to seafood; Z88.5 Allergy status to narcotic agent; Z91.09 Other allergy status, other than to drugs and biological substances
CPT/HCPCS: 36415; 80053; 80306; 81001; 81025; 83735; 84443; 85007; 85027; 99284

== ENCOUNTER 2021-03-22 06:07 | Emergency (ER) | payer BC ==
[2021-03-22] MEDS ORDERED: Acetaminophen/oxyCODONE 325-5 MG Tab PO ONE (07:13)
[2021-03-22] MEDS ORDERED: Penicillin V Potassium 500 MG Tab PO ONE (07:15)
--- NOTE | 2021-03-22 07:17 | EDM.PDOC ---
ED HPI GENERAL MEDICAL PROBLEM - General Chief Complaint: ENT Problem Stated Complaint: DENTAL COMPLAINT Time Seen by Provider: 03/22/21 07:18 Source of Information: Reports: Patient History Limitations: Reports: No Limitations - History of Present Illness INITIAL COMMENTS - FREE TEXT/NARRATIVE: Patient 40-year-old female presenting to the emergency room with chief complaint of dental pain. Patient reports intermittent dental pain for the past several months. She has not seen a dentist for this issue. Pain is in the lower right molar. Pain became more severe earlier this morning. She took Tylenol with little relief. No pain with opening her jaw. No radiation of the pain. Patient states she just wants pain relief and she will go to the dentist today. Denies any fevers, chills, neck pain, difficulty breathing, difficulty swallowing. Right Lower Tooth/Teeth Pain Score (Numeric/FACES): 10 - Related Data Allergies Allergy/AdvReac Type Severity Reaction Status Date / Time celecoxib [From Celebrex] Allergy Severe Anaphylactic Verified 03/22/21 06:26 Shock shellfish derived Allergy Intermediate Rash Verified 03/22/21 06:26 chicken derived Allergy Mild Cannot Verified 03/22/21 06:26 Remember grass pollen Allergy Mild Cannot Verified 03/22/21 06:26 Remember tramadol Allergy Mild Cannot Verified 03/22/21 06:26 Remember Home Meds: Home Meds Budesonide/Formoterol [Symbicort 160-4.5 MCG] 1 puff INH DAILY 10/26/19 [History] Cholecalciferol (Vitamin D3) [Vitamin D3] 2,000 unit PO DAILY 10/26/19 [History] Dapagliflozin Propanediol [Farxiga] 10 mg PO DAILY 10/26/19 [History] Meclizine HCl 25 mg PO TID PRN 10/26/19 [History] Montelukast Sodium 10 mg PO DAILY 10/26/19 [History] Naproxen Sodium [Flanax] 220 mg PO BID PRN 10/26/19 [History] atorvaSTATin Calcium [Atorvastatin Calcium] 10 mg PO DAILY 10/26/19 [History] lisinopriL [Lisinopril] 5 mg PO DAILY 10/26/19 [History] metFORMIN HCl [Metformin HCl] 500 mg PO QID 10/26/19 [History] Escitalopram [Lexapro] 20 mg PO ASDIRECTED #30 tab 02/02/20 [Rx] hydrOXYzine HCL [Atarax] 50 mg PO Q6H PRN #30 tab 02/02/20 [Rx] Acetaminophen/oxyCODONE [Percocet 325-5 MG] 1 each PO Q8HR PRN 7 Days #6 tab 03/22/21 [Rx] Penicillin V Potassium [Veetids] 500 mg PO Q8H 7 Days #21 tab 03/22/21 [Rx] Past Medical History HEENT History: Reports: Other (See Below) Other HEENT History: "FESS" surgery Cardiovascular History: Reports: High Cholesterol, Hypertension Respiratory History: Reports: Asthma Musculoskeletal History: Reports: Fracture Neurological History: Reports: Migraines Psychiatric History: Reports: Depression, PTSD Endocrine/Metabolic History: Reports: Diabetes, Type II Hematologic History: Reports: Anemia Other Hematologic History: with menstral periods. - Infectious Disease History Infectious Disease History: Reports: Chicken Pox, Novel Coronavirus Social & Family History - Tobacco Use Tobacco Use Status *Q: Never Tobacco User - Caffeine Use Caffeine Use: Reports: None - Recreational Drug Use Recreational Drug Use: No ED ROS ENT - Review of Systems Review Of Systems: See Below Constitutional: Denies: Fever, Chills HEENT: Reports: Dental Pain Respiratory: Reports: No Symptoms Cardiovascular: Denies: Lightheadedness ED EXAM, ENT - Physical Exam Exam: See Below Text/Narrative:: I have reviewed the triage vital signs Const: Well nourished, well developed, appears stated age Eyes: Pupils Equal and reactive to light bilaterally, no conjunctival injection HENT: No signs of trauma or swelling, Neck supple without meningismus CV: Regular Rate Rhythm, Warm, well-perfused extremities RESP: Unlabored respiratory effort GI: soft, non-tender, non-distended, no masses MSK: No gross deformities appreciated Skin: Warm, dry. 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 Sensation and motor function of extremities grossly intact. Psych: Appropriate mood and affect. Course - Vital Signs Last Recorded V/S: Last Vital Signs Temp 36.3 C 03/22/21 06:23 Pulse 81 03/22/21 06:23 Resp 20 03/22/21 06:23 BP 131/83 03/22/21 06:23 Pulse Ox 95 03/22/21 06:23 - Orders/Labs/Meds Meds: Medications Discontinued Medications Generic Name Dose Route Start Last Admin Trade Name Freq PRN Reason Stop Dose Admin Oxycodone/Acetaminophen 1 tab 03/22/21 07:13 Acetaminophen/Oxycodone 325-5 Mg Tab PO 03/22/21 07:14 ONETIME ONE Penicillin V Potassium 500 mg 03/22/21 07:15 Penicillin V Potassium 500 Mg Tab PO 03/22/21 07:16 ONETIME ONE Departure - Departure Time of Disposition: 07:17 Disposition: Home, Self-Care 01 Clinical Impression: Pain, dental - Discharge Information *PRESCRIPTION DRUG MONITORING PROGRAM REVIEWED*: No *COPY OF PRESCRIPTION DRUG MONITORING REPORT IN PATIENT YARI: No Prescriptions: Acetaminophen/oxyCODONE [Percocet 325-5 MG] 1 each PO Q8HR PRN 7 Days #6 tab PRN Reason: Pain (Severe 7-10) Penicillin V Potassium [Veetids] 500 mg PO Q8H 7 Days #21 tab Instructions: Dental Pain Referrals: Rosie Duff [facility] [Primary Care Provider] - Forms: ED Department Discharge Additional Instructions: Please follow-up with your dentist as soon as possible. Take antibiotics as directed. Return to the emergency room for worsening symptoms or any other emergent concerns. Sepsis Event Note (ED) - Focused Exam Vital Signs: Vital Signs Temp Pulse Resp BP Pulse Ox 03/22/21 06:23 36.3 C 81 20 131/83 95 - Assessment/Plan Assessment:: Patient evaluated in the emergency room for dental pain. No evidence of submandibular abscess/Ross angina. Patient otherwise has a normal exam and no drainable abscess that is evident. Patient given antibiotics and pain medication. Will be discharged with instructions for outpatient follow-up. Return precautions discussed as usual. Patient agrees with plan of care.
--- NOTE | 2021-03-22 07:32 | EDM.PDOC ---
ED HPI GENERAL MEDICAL PROBLEM - General Chief Complaint: ENT Problem Stated Complaint: DENTAL COMPLAINT Time Seen by Provider: 03/22/21 07:18 Source of Information: Reports: Patient History Limitations: Reports: No Limitations - History of Present Illness INITIAL COMMENTS - FREE TEXT/NARRATIVE: Patient 40-year-old female presenting to the emergency room with chief complaint of dental pain. Patient reports intermittent dental pain for the past several months. She has not seen a dentist for this issue. Pain is in the lower right molar. Pain became more severe earlier this morning. She took Tylenol with little relief. No pain with opening her jaw. No radiation of the pain. Patient states she just wants pain relief and she will go to the dentist today. Denies any fevers, chills, neck pain, difficulty breathing, difficulty swallowing. Right Lower Tooth/Teeth Pain Score (Numeric/FACES): 10 - Related Data Allergies Allergy/AdvReac Type Severity Reaction Status Date / Time celecoxib [From Celebrex] Allergy Severe Anaphylactic Verified 03/22/21 06:26 Shock shellfish derived Allergy Intermediate Rash Verified 03/22/21 06:26 chicken derived Allergy Mild Cannot Verified 03/22/21 06:26 Remember grass pollen Allergy Mild Cannot Verified 03/22/21 06:26 Remember tramadol Allergy Mild Cannot Verified 03/22/21 06:26 Remember Home Meds: Home Meds Budesonide/Formoterol [Symbicort 160-4.5 MCG] 1 puff INH DAILY 10/26/19 [History] Cholecalciferol (Vitamin D3) [Vitamin D3] 2,000 unit PO DAILY 10/26/19 [History] Dapagliflozin Propanediol [Farxiga] 10 mg PO DAILY 10/26/19 [History] Meclizine HCl 25 mg PO TID PRN 10/26/19 [History] Montelukast Sodium 10 mg PO DAILY 10/26/19 [History] Naproxen Sodium [Flanax] 220 mg PO BID PRN 10/26/19 [History] atorvaSTATin Calcium [Atorvastatin Calcium] 10 mg PO DAILY 10/26/19 [History] lisinopriL [Lisinopril] 5 mg PO DAILY 10/26/19 [History] metFORMIN HCl [Metformin HCl] 500 mg PO QID 10/26/19 [History] Escitalopram [Lexapro] 20 mg PO ASDIRECTED #30 tab 02/02/20 [Rx] hydrOXYzine HCL [Atarax] 50 mg PO Q6H PRN #30 tab 02/02/20 [Rx] Acetaminophen/oxyCODONE [Percocet 325-5 MG] 1 each PO Q8HR PRN 7 Days #6 tab 03/22/21 [Rx] Penicillin V Potassium [Veetids] 500 mg PO Q8H 7 Days #21 tab 03/22/21 [Rx] Past Medical History HEENT History: Reports: Other (See Below) Other HEENT History: "FESS" surgery Cardiovascular History: Reports: High Cholesterol, Hypertension Respiratory History: Reports: Asthma Musculoskeletal History: Reports: Fracture Neurological History: Reports: Migraines Psychiatric History: Reports: Depression, PTSD Endocrine/Metabolic History: Reports: Diabetes, Type II Hematologic History: Reports: Anemia Other Hematologic History: with menstral periods. - Infectious Disease History Infectious Disease History: Reports: Chicken Pox, Novel Coronavirus Social & Family History - Tobacco Use Tobacco Use Status *Q: Never Tobacco User - Caffeine Use Caffeine Use: Reports: None - Recreational Drug Use Recreational Drug Use: No ED ROS ENT - Review of Systems Review Of Systems: See Below Constitutional: Denies: Fever, Chills ED EXAM, ENT - Physical Exam Exam: See Below Text/Narrative:: I have reviewed the triage vital signs Const: Well nourished, well developed, appears stated age Eyes: Pupils Equal and reactive to light bilaterally, no conjunctival injection HENT: No submandibular fullness. No trismus. Cracked tooth in the lower molar. No obvious signs of abscess. No signs of trauma or swelling, Neck supple without meningismus CV: Regular Rate Rhythm, Warm, well-perfused extremities RESP: Unlabored respiratory effort MSK: No gross deformities appreciated Skin: Warm, dry. 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 Psych: Appropriate mood and affect. Course - Vital Signs Last Recorded V/S: Last Vital Signs Temp 36.5 C 03/22/21 07:35 Pulse 80 03/22/21 07:35 Resp 16 03/22/21 07:35 BP 114/69 03/22/21 07:35 Pulse Ox 94 L 03/22/21 07:35 - Orders/Labs/Meds Meds: Medications Discontinued Medications Generic Name Dose Route Start Last Admin Trade Name Freq PRN Reason Stop Dose Admin Oxycodone/Acetaminophen 1 tab 03/22/21 07:13 03/22/21 07:28 Acetaminophen/Oxycodone 325-5 Mg Tab PO 03/22/21 07:14 1 tab ONETIME ONE Administration Penicillin V Potassium 500 mg 03/22/21 07:15 03/22/21 07:28 Penicillin V Potassium 500 Mg Tab PO 03/22/21 07:16 500 mg ONETIME ONE Administration Departure - Departure Time of Disposition: 08:00 Disposition: Home, Self-Care 01 Clinical Impression: Pain, dental - Discharge Information *PRESCRIPTION DRUG MONITORING PROGRAM REVIEWED*: No *COPY OF PRESCRIPTION DRUG MONITORING REPORT IN PATIENT YARI: No Prescriptions: Acetaminophen/oxyCODONE [Percocet 325-5 MG] 1 each PO Q8HR PRN 7 Days #6 tab PRN Reason: Pain (Severe 7-10) Penicillin V Potassium [Veetids] 500 mg PO Q8H 7 Days #21 tab Instructions: Dental Pain Referrals: Rosie Duff P[employer] AND [employer] SUPERVISOR [Primary Care Provider] - Forms: ED Department Discharge, ED Return to Work/School Form Additional Instructions: Please follow-up with your dentist as soon as possible. Take antibiotics as directed. Return to the emergency room for worsening symptoms or any other emergent concerns. Sepsis Event Note (ED) - Focused Exam Vital Signs: Vital Signs Temp Pulse Resp BP Pulse Ox 03/22/21 07:35 36.5 C 80 16 114/69 94 L 03/22/21 06:23 36.3 C 81 20 131/83 95 - Assessment/Plan Assessment:: Patient is 40-year-old female presenting with dental pain. Patient no respiratory distress. No signs of drainable abscess or indication for emergent imaging at this time. No evidence of Ross angina. At this point, patient can be discharged with oral antibiotics and pain medication. Instructed to follow- up with dentist in the next 24 hours. Return precautions discussed. Patient agrees with plan.
== END 2021-03-22 07:38 | disposition home or self-care (01) ==
LOC: JD.ED 06:07
DX: K08.89 Other specified disorders of teeth and supporting structures (principal); E78.00 Pure hypercholesterolemia, unspecified; I10 Essential (primary) hypertension; E11.9 Type 2 diabetes mellitus without complications; J45.909 Unspecified asthma, uncomplicated; Z79.84 Long term (current) use of oral hypoglycemic drugs; Z79.899 Other long term (current) drug therapy; Z91.018 Allergy to other foods; Z91.013 Allergy to seafood; Z91.048 Other nonmedicinal substance allergy status; Z88.8 Allergy status to other drugs, medicaments and biological substances; Z88.5 Allergy status to narcotic agent
CPT/HCPCS: 99282; A9270